=== PATIENT | female | born 1985 | race Caucasian/White ===

== ENCOUNTER 2016-11-02 21:59 | Inpatient (IN) | payer BC, MEDICAID ==
[2016-11-02] MEDS ORDERED: fentaNYL 100 MCG/2 ML INJ ONE (22:09)
[2016-11-02] MEDS ORDERED: ONDANSETRON 4 MG/2 ML VIAL ONE (22:09)
--- NOTE | 2016-11-02 22:16 | EDPHY ---
H & P HPI/ROS: Chief Complaint: Fall, back and ankle pain HPI: 31-year-old woman was rock climbing this evening when she fell and her protective gear became loose. Patient states she fell approximately 20 feet and landed on her back and buttocks. She was wearing a helmet. She had no loss of conscious. Had immediate onset of low back and pelvis pain and right ankle pain. She has a prolonged rescue by [facility]. Patient received 200 mcg of fentanyl EN route. Patient has been awake alert to the entire transfer process. Denies past medical history. No chest pain or shortness of breath. No abdominal pain. No neck pain, numbness or weakness. ROS: 10 point Review of Systems is negative except as noted in the HPI. PMH: None medications: None Allergies: None Social History: No smoking, occasional alcohol, no recreational drug use Family History: non-contributory Physical Exam: Gen: Awake, Alert, Airway Intact HEENT: Head: Atraumatic Eyes: PERRLA, EOMI Ears: No hemotympanum Nose: No epistaxis Mouth: Normal dentition, Airway patent Face: No deformity Neck: non-tender, no stepoff, Full ROM without pain Chest: non-tender, lungs CTA Heart: normal heart tones Abd: soft, moderate tenderness left lower quadrant, atraumatic Pelvis: Tender redness over primarily the left iliac crest, \tenderness to AP and lateral compression Back: No midline tenderness or step-offs. She has a large contusion in the left lateral mid thoracic and over the left iliac crest, no midline tenderness Ext: Right ankle is tender with primary tenderness in the lateral malleolus, decreased range of motion secondary to pain Skin: no rash Neuro: CN II-XII intact, Strength 5/5 in all extremities, sensation intact in all extremities Medical Decision Making - Diagnostics Imaging Results: Imaging Impressions Abdomen CT 11/02/16 22:06 Impression: 1. Normal CT abdomen and pelvis with contrast enhancement. 2. Burst type fracture involving L5 vertebral body segment as detailed above. There is also fracture through the posterior ring. 3. Fractures of the right transverse process of L1-L4. Findings were reviewed in the radiology department with Dr. Linda Aguilar Lumbar Spine CT 11/02/16 22:06 Impression: 1. Normal CT abdomen and pelvis with contrast enhancement. 2. Burst type fracture involving L5 vertebral body segment as detailed above. There is also fracture through the posterior ring. 3. Fractures of the right transverse process of L1-L4. Findings were reviewed in the radiology department with Dr. Linda Aguilar ED Course/Re-evaluation: Patient arrived as a full trauma activation with Dr. Aguilar in her room with myself. Patient is awake and alert. Normal hemodynamics. Primary survey was completed. Secondary survey revealed pelvis lumbar, thoracic and ankle injuries with some abdominal tenderness. Right ankle was immobilized by myself with a posterior splint for imaging. Patient received 50 mcg of fentanyl and 4 mg of Zofran. Patient was escorted to CT scanner by Dr. Aguilar. 2235 CT scan shows right-sided L1 through 4 transverse process fracture and an L5 body fracture. MRI has been ordered by Dr. Aguilar. Dr. Calhoun has also spoke with Dr. Roper who was on his way. - Data Points Laboratory Results: Laboratory Results 11/02/16 22:45 11/02/16 11/02/16 11/02/16 22:45 22:45 22:45 WBC RBC Hgb Hct MCV MCH MCHC RDW Plt Count MPV Neut % (Auto) Lymph % (Auto) [place] % (Auto) Eos % (Auto) Baso % (Auto) Nucleat RBC Rel Count Absolute Neuts (auto) Absolute Lymphs (auto) Absolute Monos (auto) Absolute Eos (auto) Absolute Basos (auto) Absolute Nucleated RBC Immature Gran % Immature Gran # PT INR APTT Sodium Pending Potassium Pending Chloride Pending Carbon Dioxide Pending Anion Gap Pending BUN Pending Creatinine Pending Estimated GFR Pending Glucose Pending Calcium Pending Beta HCG, Qual Pending Ethyl Alcohol Pending Patient ABO/Rh Pending Antibody Screen Pending 11/02/16 11/02/16 22:45 22:45 WBC 18.50 10^3/uL H 10^3/uL (3.80-9.50) RBC 3.63 10^6/uL L 10^6/uL (4.18-5.33) Hgb 12.0 g/dL L g/dL (12.6-16.3) Hct 35.7 % L % (38.0-47.0) MCV 98.3 fL fL (81.5-99.8) MCH 33.1 pg pg (27.9-34.1) MCHC 33.6 g/dL g/dL (32.4-36.7) RDW 12.1 % % (11.5-15.2) Plt Count 203 10^3/uL 10^3/uL (150-400) MPV 9.5 fL fL (8.7-11.7) Neut % (Auto) 84.9 % H % (39.3-74.2) Lymph % (Auto) 5.4 % L % (15.0-45.0) [place] % (Auto) 8.4 % % (4.5-13.0) Eos % (Auto) 0.1 % L % (0.6-7.6) Baso % (Auto) 0.2 % L % (0.3-1.7) Nucleat RBC Rel Count 0.0 % % (0.0-0.2) Absolute Neuts (auto) 15.70 10^3/uL H 10^3/uL (1.70-6.50) Absolute Lymphs (auto) 1.00 10^3/uL 10^3/uL (1.00-3.00) Absolute Monos (auto) 1.56 10^3/uL H 10^3/uL (0.30-0.80) Absolute Eos (auto) 0.01 10^3/uL L 10^3/uL (0.03-0.40) Absolute Basos (auto) 0.04 10^3/uL 10^3/uL (0.02-0.10) Absolute Nucleated RBC 0.00 10^3/uL 10^3/uL (0-0.01) Immature Gran % 1.0 % % (0.0-1.1) Immature Gran # 0.19 10^3/uL H 10^3/uL (0.00-0.10) PT Pending INR Pending APTT Pending Sodium Potassium Chloride Carbon Dioxide Anion Gap BUN Creatinine Estimated GFR Glucose Calcium Beta HCG, Qual Ethyl Alcohol Patient ABO/Rh Antibody Screen Medications Given: Discontinued Medications Hydromorphone HCl (Dilaudid) 1 mg IVP EDNOW ONE Stop: 11/02/16 22:39 Last Admin: 11/02/16 22:39 Dose: 1 mg Departure - Departure Disposition: [facility] In[facility] Acute Clinical Impression: Lumbar burst fracture, Ankle fracture Condition: Critical Referrals: Patient,NotPresent [Primary Care Provider] - As per Instructions
[2016-11-02] MEDS ORDERED: HYDROmorphONE/DILAUDID 1 MG/ML SYR ONE (22:36)
[2016-11-02] MEDS ORDERED: HYDROmorphONE/DILAUDID 1 MG/ML SYR IVP ONE (22:38)
[2016-11-02 22:53] LABS: ABSOLUTE IMMATURE GRANULOCYTES 0.19 10^3/uL (0.00-0.10); ADD DIFF? NO; ADD MORPH? NO; ADD SCAN? NO; ATYPICAL LYMPHOCYTE FLAG 0 (0-99); FRAGMENT RBC FLAG 0 (0-99); HEMATOCRIT 35.7 % (38.0-47.0); LEFT SHIFT FLG 60 (0-99); LIPEMIA HEMOLYSIS FLAG 80 (0-99); MEAN CELL HEMOGLOBIN 33.1 pg (27.9-34.1); MEAN CELL HEMOGLOBIN CONCENTR. 33.6 g/dL (32.4-36.7); MEAN CELL VOLUME 98.3 fL (81.5-99.8); MEAN PLATELET VOLUME 9.5 fL (8.7-11.7); PLATELET CLUMPS FLAG 0 (0-99); PLATELET COUNT 203 10^3/uL (150-400); RED BLOOD CELL COUNT 3.63 10^6/uL (4.18-5.33); RED CELL DISTRIBUTION WIDTH 12.1 % (11.5-15.2)
[2016-11-02 23:01] LABS: INR 1.18 (0.83-1.16)
[2016-11-02 23:02] LABS: APTT 25.8 SEC (23.0-38.0)
[2016-11-02] MEDS ORDERED: NALOXONE HCL 0.4 MG/ML INJ IVP PRN ×2 (23:02→23:06)
[2016-11-02 23:09] LABS: ANION GAP 10 mEq/L (8-16); CALCIUM 8.8 mg/dL (8.5-10.4); CARBON DIOXIDE 21 mEq/l (22-31); CHLORIDE 103 mEq/L (97-110); CREATININE 0.9 mg/dL (0.6-1.0); ETHANOL SERUM < 10 mg/dL (0-10); GLOMERULAR FILTRATION RATE > 60; GLUCOSE 130 mg/dL (70-100); POTASSIUM 3.4 mEq/L (3.5-5.2); SODIUM 134 mEq/L (134-144)
--- NOTE | 2016-11-02 23:34 | GHP ---
[f rep st] PREOP HISTORY AND PHYSICAL DATE OF ADMISSION: 11/02/2016 REASON FOR CONSULTATION: 1. Bilateral ankle pain. Rule out fractures. 2. Lumbar spine pain. Rule out fracture. HISTORY OF PRESENT ILLNESS: Patient is a 31-year-old woman who was rock climbing and fell approxima tely 20 feet when her gear became loose. She was extricated by [employer] [facility] and brought to the emergency room. She was awake and alert during the entire process. Denies loss of consciousne ss. REVIEW OF SYSTEMS: Negative and as indicated in the emergency room. PAST MEDICAL HISTORY: None. MEDS: None. ALLERGIES: None. SOCIAL HISTORY: Nonsmoker. No recreational drug use. Occasional alcohol use. PHYSICAL EXAMINATION: GENERAL: Patient is awake, alert, oriented, and cooperative. HEENT: Within normal limits. BACK: She complains of back pain and is being evaluated by the administrative program specialist. She moves all extremities and has normal sensation. CHEST: Evaluated by ER physician and normal. ABDOMEN: Evaluated by ER physician and normal. HEART: Evaluated by ER physician and normal. EXTR EMITIES: Examination of the right ankle reveals swelling. She has a posterior splint in place, nor mal sensation, is able move the toes. Left ankle is much less tender. She is able to move the ankl e, midfoot, and toes. She has some mild pain laterally, mild pain anteriorly in the mid foot. Skin is intact. Sensation is intact. Pulses 2+ dorsalis pedis, posterior tibialis. IMAGING: Images show a fracture through the right talar neck and an avulsion fracture posteriorly o ff the talus. The x-rays of the left talus show irregularities in the talar neck, questionable frac ture. Radiographs of the lumbar spine show a burst fracture involving the L5 vertebral body and tra nsverse process fractures from L1 through L4 on the right side. ASSESSMENT: Further imaging will be required to evaluate the ankle and specifically the talus fract ures. We will image both ankles and determine the appropriate mode of treatment after review of CT. She is placed in a posterior splint on the right side. A soft dressing will be applied on the lef t side. She will ice and elevate. /[id number]/MODL
--- NOTE | 2016-11-02 23:44 | GHP ---
[f rep st] HISTORY AND PHYSICAL DATE OF ADMISSION: 11/02/2016 CHIEF COMPLAINT: Trauma activation, fall from 20 feet. HISTORY OF PRESENT ILLNESS: The patient is a 31-year-old woman who was a helmeted climber when she fell approximately 20 feet. She had no loss of consciousness. She is not sure exactly how she landed but she complains of pelvis, back, and ankle pain. She last ate prior to dinner. She had something to drink around 6 o'clock. She is unsure of her last tetanus. ALLERGIES: She has no allergies. PAST MEDICAL HISTORY: None. PAST SURGICAL HISTORY: Surgery on her kidney when she was in 6th grade. 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 She denies tobacco use. She does use marijuana. FAMILY HISTORY: Noncontributory. REVIEW OF SYSTEMS: Significant for pain in her back, pelvis, and feet. PHYSICAL EXAMINATION: VITAL SIGNS: She is afebrile. Her vital signs have been stable. General: Pleasant, well nourished and appropriate. HEENT: Normocephalic, atraumatic. Pupils equal, round, react to light. No hemotympanum. No otorrhea. Teeth fit together normally. No midface instability. Posterior pharynx clear. Tongue is dry. NECK: Dr. Hooker cleared her C-spine on arrival to the emergency room by clinical exam. LUNGS: Clear to auscultation bilaterally. No increased work of breathing. Chest: No clavicular tenderness. No sternal tenderness. CARDIAC: Regular rate. No peripheral edema. ABDOMEN: Bowel sounds present. Soft. She is tender when pushing on her abdomen, but she feels it in her back. No pelvis instability. EXTREMITIES: 5/5 strength upper extremity. Lower extremities are difficult to assess for strength due to her pain with moving. She does have pain on the right lateral ankle and left calcaneus. SKIN: She has scattered varying bruises over her legs. BACK: She has an abrasion across her back. She has minimal pain on her back. PSYCH: Very appropriate, at points tearful. NEURO: Grossly intact. In particular, no paresthesias or saddle anesthesia. LABORATORY DATA: Pending. Her CT scan shows no solid abdominal organ injury. Her L-spine shows right transverse process fractures 1 through 4 and L5 complex fracture. MRI with epidural hematoma anteriorly. She has a R talus fracture, r distal fibula fracture and l cuboid fracture. IMPRESSION AND PLAN: The patient is a 31-year-old woman status post fall 20 feet with a significant complex L5 fracture with no neuro deficits. Dr. Roper has evaluated her in the emergency room. At this time, she will be bed rest. She may be head of bed up to 30 degrees, but not more than that with spinal precautions. Substitute Crossing Guard will be coming to fit her for a brace in the morning, will need to make it and then will likely have the brace back by Monday. Goal is non -operative management. If she develops any neurologic changes, pain is not controlled or on standing x-ray there is instability then surgical intervention will be required. She will be admitted to the ICU for q.1 hour neuro checks. We have ordered Ativan and a GOPHERMAN. She will have a Upton because she will be bed rest. Dr. Duarte has also evaluated her in the operating room, and we have ordered CT scans of her bilateral ankles. She will be nonweightbearing. She will be n.p.o. after 4 a.m. Until then, she can have sips and chips, but no solid food. Dr. Duarte will be taking her to the OR. He is awaiting the CT's to solidify his operative plan. She is unsure of her last tetanus shot, so we will give her a booster. We have counseled the patient that she will likely not be working for a couple of months. She will likely need rehab. I spent more than 90 minutes in the ER with direct patient care and coordinating her care /[id number]/MODL MTDD
[2016-11-03] MEDS ORDERED: HYDROmorphONE/DILAUDID 1 MG/ML SYR ONE (00:01)
--- NOTE | 2016-11-03 00:05 | GCON ---
[f rep st] CONSULTATION EMERGENCY ROOM CONSULTATION DATE OF CONSULTATION: 11/02/2016 REASON FOR CONSULTATION: L5 burst fracture, status post fall. HISTORY OF PRESENT ILLNESS: This is a 31-year-old, otherwise, fairly healthy woman, who states she was rock climbing this evening when she fell when her protective gear became loose. She fell approx imately 20 feet and landed, according to witnesses and herself, on 1 rock and then landed directly o nto her buttocks. She did not have any loss of consciousness and was wearing a helmet at that time. She had acute onset of low back pain and bilateral ankle pain but no loss of bowel or bladder func tion and no radiculopathy. She had a prolonged rescue by [email or web address] [facility] and was brought to [facility] for further evaluation and management. Imaging studies demonstrated L5 bu rst fracture, for which a neurosurgical consultation was requested. The patient currently is complaining of low back pain located at the lumbosacral junction. She also has pain in her bilateral ankles. No numbness or tingling radiating down her legs and no saddle an esthesia. She has no tingling, numbness, or pain of the upper extremities. No neck pain. She luis es any headaches. REVIEW OF SYSTEMS: Complete 10-point review of systems from the patient's intake form reviewed by chaz garcia and negative for those except as noted in the HPI. PAST MEDICAL HISTORY: None. MEDICATIONS: Prior to admission none. ALLERGIES: No known drug allergies. SOCIAL HISTORY: Patient does not utilize alcohol but no other recreational or illicit drug use and no tobacco use. FAMILY HISTORY: Negative for any cancer. PHYSICAL EXAMINATION: VITAL SIGNS: Blood pressure 127/67. Heart rate is 76. She is saturating 98 %, currently on 2 L nasal cannula. Respiratory rate is 16. Patient is afebrile. GENERAL: The pat ient is sitting in the bed, is no acute distress. She, in fact, is in fairly good spirits given her current circumstances. Affect appears to be appropriate. HEENT: Head is atraumatic, normocephali c. Eyes: Pupils are equal, round, reactive to light bilaterally. Extraocular movements are intact . Oropharynx is moist. NECK: Nontender with no evidence of any step-offs with full range of motio n without pain. CARDIOVASCULAR: Deferred. PULMONARY: Deferred. MOTOR EXAM: She has 5/5 strengt h with bilateral machine setup operator strength, biceps, triceps, bilateral deltoid, bilateral hip flexion, left knee flexion/extension, and left plantar dorsiflexion and left extensor hallucis longus. Right lower ex tremity below the knee could not be examined secondary to being casted and splinted. SENSORY: The patient has intact sensation throughout all major dermatomes of the bilateral upper extremities, as well as left lower extremity and right lower extremity to the level of the knee to light touch. She has no appreciable reflexes at the moment of the bilateral patella or brachioradialis. OTHER: She has negative Dre's and no Babinski on the left. Per trauma notes, patient does have rectal tone and no saddle anesthesia. NEUROLOGIC: Cranial nerv es 2-12 are intact. Face is symmetric. Tongue protrudes midline. Uvula and palate elevate symmetr ically. She has intact sensation to light touch on her face bilaterally. She has intact hearing to light finger scratch bilaterally and shoulder shrug is symmetric. Her pupils are equally round and reactive to light bilaterally, and extraocular movements are intact. MEDICAL DECISION MAKING: Patient underwent a CT of the abdomen and pelvis with CT of the lumbar spi ne, which was reviewed by me on the [facility] PAC system. There is a burst-type fr acture associated with the L5 vertebral body segment. Compression is most prominent along the left superior endplate. There is a fracture line involving the posterior ring to the right side of the s pinous process. There are also a right-sided transverse process fractures of L1 through L4. No adi dence of any other fractures in the lower thoracic spine. ASSESSMENT AND PLAN: The patient is an otherwise healthy 31-year-old woman, who fell approximately 20 feet earlier this evening and had a long extrication. She has been neurologically intact since t he event and has been conscious throughout. She has evidence of bilateral ankle fractures and an L5 burst fracture. The patient does state that she had, in fact, sat up at the injury site and had so me assistance ambulating with her friends. She is neurologically intact, and given the burst-type f racture and the fact that she has already tested this with being upright, I gave her the 2 treatment options describing treatments for this, which would involve either posterior segment stabilization with a fusion versus bracing option, which is nonsurgical. Given the fact that she is neurologicall y intact and has already tested this, I think initial treatment with a brace would be a reasonable o ption. She agrees with this initial treatment plan. We will obtain an MRI scan of the lumbar spine to further evaluate her fracture pattern and to evaluate the ligamentous structures and ensure that there are no concerning hematomas. We will have Rack Worker come fit the patient with an LSO brace with a hip spica. There is no indication or treatment for the transverse process fractures. I did expl ain to the patient that should she develop any neurological deficits, worsening kyphosis, or intract able pain, that she will ultimately require surgical fixation for this lesion. She did express an u nderstanding. For this reason, we will place her in the intensive care unit this evening with q.1 h our neuro checks. She should have spinal precautions but is able to be up to 30 degrees without a b race. However, once she is greater than 30 degrees or up and mobile, she needs to be in the brace. I recommended pain control with muscle relaxants and have discussed this with the primary service, Dr. Aguilar, who is the admitting trauma surgeon, as well as Dr. Duarte of Orthopedics and the emergenc y room physicians, as well as the patient, who are all in agreement with this treatment plan. Neurosurgery will follow along with this patient. /[id number]/MODL
[2016-11-03] MEDS ORDERED: TDAP ADULT 0.5 ML INJ (BOOSTRIX) IM ONE (00:16)
[2016-11-03 00:46] LABS: COLOR YELLOW; LEUKOCYTE ESTERASE,URINE NEGATIVE (NEGATIVE); NITRITE,URINE NEGATIVE (NEGATIVE)
[2016-11-03 00:49] LABS: BACTERIA TRACE /hpf (NONE SEEN)
[2016-11-03] MEDS ORDERED: fentaNYL 100 MCG/2 ML INJ IVP ONE (00:52)
[2016-11-03] MEDS ORDERED: ONDANSETRON 4 MG/2 ML VIAL IVP ONE (00:52)
[2016-11-03] MEDS: morphINE PCA 30 MG/30 ML PCA IV PRN ×3 (00:52→20:36)
[2016-11-03] MEDS: D5W 1/2 NS W/ 20 KCl/L 1,000 ML IV SCH (00:55)
[2016-11-03] MEDS ORDERED: HYDROmorphONE/DILAUDID 1 MG/ML SYR IVP ONE ×2 (00:55→00:57)
[2016-11-03] MEDS ORDERED: NS 500 ML IV ONE (00:59)
[2016-11-03] MEDS: ONDANSETRON 4 MG/2 ML VIAL IVP PRN (01:33)
[2016-11-03] MEDS: PROMETHAZINE HCL 25 MG/ML INJ IV PRN (02:12)
[2016-11-03 04:17] LABS: % IMMATURE GRANULYOCYTES 0.6 % (0.0-1.1); ABSOLUTE IMMATURE GRANULOCYTES 0.07 10^3/uL (0.00-0.10); ADD DIFF? NO; ADD MORPH? NO; ADD SCAN? NO; ATYPICAL LYMPHOCYTE FLAG 10 (0-99); FRAGMENT RBC FLAG 0 (0-99); HEMATOCRIT 34.7 % (38.0-47.0); HEMOGLOBIN 11.8 g/dL (12.6-16.3); LEFT SHIFT FLG 30 (0-99); LIPEMIA HEMOLYSIS FLAG 90 (0-99); MEAN CELL HEMOGLOBIN 33.6 pg (27.9-34.1); MEAN CELL VOLUME 98.9 fL (81.5-99.8); MEAN PLATELET VOLUME 9.7 fL (8.7-11.7); PLATELET CLUMPS FLAG 0 (0-99); PLATELET COUNT 181 10^3/uL (150-400); RED BLOOD CELL COUNT 3.51 10^6/uL (4.18-5.33); RED CELL DISTRIBUTION WIDTH 12.4 % (11.5-15.2)
[2016-11-03 04:38] LABS: ANION GAP 9 mEq/L (8-16); CALCIUM 8.9 mg/dL (8.5-10.4); CARBON DIOXIDE 22 mEq/l (22-31); CHLORIDE 105 mEq/L (97-110); CREATININE 0.8 mg/dL (0.6-1.0); GLOMERULAR FILTRATION RATE > 60; GLUCOSE 101 mg/dL (70-100); POTASSIUM 4.4 mEq/L (3.5-5.2); SODIUM 136 mEq/L (134-144)
--- NOTE | 2016-11-03 07:34 | SOAPPROG ---
SOAP Progress Note Assessment/Plan: Assessment: Plan: Subjective: S: Pt. s/p fall from 20 feet with bilat ankle and foot pain, talus fx on right, cuboid fx on left. Pn. well controlled. No N/T, no new joint pain, no fevers, BRAXTON, dizziness, CP, SOB, abd. pn, n/v. O: Pt. alert calm, comfortable, resting, answering questions appropriately. No calf swelling, TTP, redness or warmth, Splint in place on right. John loosened and re-wrapped as it was quite uncomfortable, better after re-wrap. DNVI bilaterally. No other new joint pain or tenderness to palpate. A: Pt. awaiting results of CT to determine when appropriate time will be to repair right talus and to review results of left foot fx as well. Dr. Duarte will review results this AM. P: Continue pain meds. as ordered Continue Left SCD Continue NPO Continue NWB bilat LE. Objective: Vital Signs Temp Pulse Resp BP Pulse Ox 37.0 C 60 18 101/56 L 100 11/03/16 00:30 11/03/16 06:00 11/03/16 06:00 11/03/16 06:00 11/03/16 06:00 Laboratory Results 11/03/16 04:00 11/03/16 04:00 11/02/16 11/03/16 11/04/16 05:59 05:59 05:59 Intake Total 1230 Output Total 1250 Balance -20 PT 15.0 SEC (12.0-15.0) 11/02/16 22:45 INR 1.18 (0.83-1.16) H 11/02/16 22:45 ICD10 Worksheet Patient Problems: Problems Problem Status Onset Ankle fracture Acute Lumbar burst fracture Acute
--- NOTE | 2016-11-03 07:44 | SOAPPROG ---
SOAP Progress Note Assessment/Plan: Assessment: 31 FEMALE WITH SPINAL FX AND TALUS FX + OTHER INJURIES/ VS STABLE/ AFEBRILE/ HCT 31 NPO FOR SURGERY TODAY ALERT, COMFORTABLE Plan:SPINE MRI/ SURGERY ON TALUS 11/03/16 07:43 11/03/16 16:21 Objective: Vital Signs Temp Pulse Resp BP Pulse Ox 37.0 C 60 18 101/56 L 100 11/03/16 00:30 11/03/16 06:00 11/03/16 06:00 11/03/16 06:00 11/03/16 06:00 Laboratory Results 11/03/16 04:00 11/03/16 04:00 11/02/16 11/03/16 11/04/16 05:59 05:59 05:59 Intake Total 1230 Output Total 1250 Balance -20 PT 15.0 SEC (12.0-15.0) 11/02/16 22:45 INR 1.18 (0.83-1.16) H 11/02/16 22:45 ICD10 Worksheet Patient Problems: Problems Problem Status Onset Ankle fracture Acute Lumbar burst fracture Acute
--- NOTE | 2016-11-03 09:02 | NEUSURGPN ---
Assessment/Plan: Assessment: 31yo female 30ft fall with L5 burst fx and L1-4 TP fractures Plan: -Follow up MRI lumbar spine today -Gas Cutter to fit with LSO brace-Gas Cutter to arrive on Monday -Will need upright lumbar spine x-rays IN brace when it arrives, pending ok to bear weight per Ortho -May need spine surgery if pain can't be controlled or with any neuro changes -Call NS with any changes in status Subjective: Patient complains of low back pain, denies any saddle anesthesia or lower extremity neurological symptoms Objective: -AOx4 -full strength in left lower extremity -Unable to assess strength in right lower extremity r/t ankle fracture -Sensation intact throughout BLE Neuro Check Frequency: per routine Urinary Catheter in Place: Yes Urinary Catheter Indication: Other (Use Comment) (trauma) Catheter Insertion Date: 11/02/16 - Physician Discussed Patient with : Jacqu[facility] Neurosurgery Physical Exam - Vitals, I&O, Labs I and O 11/02/16 11/03/16 11/04/16 05:59 05:59 05:59 Intake Total 1230 Output Total 1250 Balance -20 Weight 68.039 kg Intake: Oral (ml) 300 IV Infused (ml) 930 D5W 1/2 NS W/ 20 KCl/L 1, 241 000 ml @ 75 mls/hr IV CONT KAPIL Rx#:[id number] morphINE 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
[2016-11-03] MEDS ORDERED: LACTULOSE 20 GM/30 ML UDCUP PO PRN (09:50)
[2016-11-03] MEDS ORDERED: BISACODYL 10 MG SUPP PR PRN (09:50)
[2016-11-03] MEDS ORDERED: BUPIVACAINE 0.5% 30 ML SDV ONE (11:22)
[2016-11-03] MEDS ORDERED: ceFAZolin 2 GM/DEXTROSE 100 ML IV ONE (11:47)
--- NOTE | 2016-11-03 12:42 | PDANEPAE ---
ANE History of Present Illness 31 yo for orif ankle s/p fall l5 burst fx ANE Past Medical History - Cardiovascular History Hx Hypertension: No Hx Arrhythmias: No Hx Chest Pain: No Hx Coronary Artery / Peripheral Vascular Disease: No Hx CHF / Valvular Disease: No Hx Palpitations: No - Pulmonary History Hx COPD: No Hx Asthma/Reactive Airway Disease: No Hx Recent Upper Respiratory Infection: No Hx Oxygen in Use at Home: No - Endocrine History Hx Diabetes: No - Chronic Pain History Chronic Pain: No ANE Review of Systems - Exercise capacity METS (RN): 4 METS ANE Patient History - Allergies Allergies/Adverse Reactions: No Known Allergies Allergy (Unverified 11/02/16 23:02) - Home Medications Home Medications: NK [No Known Home Meds] 11/03/16 [Last Taken Unknown] - NPO status NPO Since - Liquids (Date): 11/02/16 NPO Since - Liquids (Time): 23:59 NPO Since - Solids (Date): 11/02/16 NPO Since - Solids (Time): 23:59 - Anes Hx Anes Hx: post operative nausea - Smoking Hx Smoking Status: Current some day smoker ANE Labs/Vital Signs - Labs Result Diagrams: 11/03/16 04:00 11/03/16 04:00 - Vital Signs Blood Pressure: 103/58 Heart Rate: 72 Respiratory Rate: 15 O2 Sat (%): 97 Height: 5 ft 5 in Weight: 68.039 kg ANE Physical Exam - Airway Neck exam: FROM Mallampati Score: Class 2 Mouth exam: normal dental/mouth exam - Pulmonary Pulmonary: no respiratory distress - Cardiovascular Cardiovascular: regular rate and rhythym - ASA Status ASA Status: II ANE Anesthesia Plan Anesthesia Plan: GA w LMA
[2016-11-03] MEDS ORDERED: PROPOFOL/EMULSION 500 MG/50 ML BOTTLE IV ONE (12:53)
[2016-11-03] MEDS ORDERED: fentaNYL 100 MCG/2 ML INJ ONE ×2 (12:53)
[2016-11-03] MEDS ORDERED: DEXAMETHASONE 4 MG/ML VIAL ONE (13:15)
[2016-11-03] MEDS ORDERED: BACITRACIN 50,000 UNITS/10 ML SYR IRR ONE ×2 (13:28→14:41)
[2016-11-03] MEDS ORDERED: HYDROmorphONE/DILAUDID 2 MG/ML INJ ONE (14:46)
[2016-11-03] MEDS ORDERED: HYDROmorphONE/DILAUDID 1 MG/ML SYR IVP PRN (14:56)
[2016-11-03] MEDS ORDERED: ONDANSETRON 4 MG/2 ML VIAL IVP PRN (14:56)
[2016-11-03] MEDS ORDERED: fentaNYL 100 MCG/2 ML INJ IVP PRN (14:56)
[2016-11-03] MEDS ORDERED: NALOXONE HCL 0.4 MG/ML INJ IVP PRN (14:56)
[2016-11-03] MEDS ORDERED: PROPOFOL 200 MG/20 ML VIAL ONE (15:10)
--- NOTE | 2016-11-03 15:35 | POSTOPPROG ---
Post Op Note Date of Operation: 11/03/16 Surgeon: El Duarte Flatbed Stitcher: Frantz Anesthesia: GET(General Endotracheal) Pre-op Diagnosis: right talus fracture Post-op Diagnosis: right talus fracture Procedure: open reduction internal fixation of the right talus Findings: As above, please see full dictation for details. Inf/Abcess present in the surg proc area at time of surgery?: No Depth: Deep Incisional (Fascial) EBL: Minimal Complications: None
--- NOTE | 2016-11-03 15:42 | POSTANESTH ---
Post Anesthetic Evaluation Cardiovascular Status: Normal, Stable Respiratory Status: Similar to Pre-op Cond. Level of Consciousness/Mental Status: Can Participate in Eval Pain Control: Adequate, Prn Tx Ordered Nausea/Vomiting Control: Adequate, Prn Tx Ordered Complications Possibly Related to Anesthesia: None Noted
--- NOTE | 2016-11-03 16:21 | SOAPPROG ---
SOAP Progress Note Assessment/Plan: Assessment/Plan: Right talus fracture, left cuboid fracture, L5 burst fracture s/p ORIF of right talus, performed by Dr. Duarte on 11/03/2016, POD#0 -Pt will be NWB on BLE -Pt placed in postoperative plaster splint on RLE, cam walker boot on LLE w/ compressive MARIA ISABEL for VTE mechanical prophylaxis -ASA for VTE chemoprophylaxis per Dr. Mckee -Pt may ice and elevate BLE for swelling and pain control, no more than 30 deg of elevation per NS -Cont current pain control, encourage PO as tolerated -OOB activity per NS 11/03/16 16:20 Objective: Vital Signs Temp Pulse Resp BP Pulse Ox 36.9 C 72 15 103/58 L 97 11/03/16 12:11 11/03/16 12:41 11/03/16 12:41 11/03/16 12:41 11/03/16 12:41 Laboratory Results 11/03/16 04:00 11/03/16 04:00 11/02/16 11/03/16 11/04/16 05:59 05:59 05:59 Intake Total 1230 Output Total 1250 Balance -20 PT 15.0 SEC (12.0-15.0) 11/02/16 22:45 INR 1.18 (0.83-1.16) H 11/02/16 22:45 Pt transported to PACU in stable condition ICD10 Worksheet Patient Problems: Problems Problem Status Onset Ankle fracture Acute Lumbar burst fracture Acute
[2016-11-03] MEDS: SENNOSIDES/DOCUSATE SODIUM TAB PO SCH (19:59)
[2016-11-03] MEDS: ceFAZolin 2 GM/DEXTROSE 100 ML IV SCH (19:59)
--- NOTE | 2016-11-03 23:33 | SOAPPROG ---
SOAP Progress Note Assessment/Plan: Assessment: 31 FEMALE WITH SPINAL FX AND TALUS FX + OTHER INJURIES/ VS STABLE/ AFEBRILE/ HCT 31 NPO FOR SURGERY TODAY ALERT, COMFORTABLE Plan:SPINE MRI/ SURGERY ON TALUS 11/03/16 07:43 11/03/16 16:21 11/03/16 23:32 CO POSTOP PAIN AND DRESSING TOO TIGHT BUT GOOD CAP FILLING AND GOOD MOTOR AND SENSORY EXAM/ NOTIFY DR LANGLEY Objective: Vital Signs Temp Pulse Resp BP Pulse Ox 36.8 C 63 14 109/60 100 11/03/16 19:59 11/03/16 22:00 11/03/16 22:00 11/03/16 22:00 11/03/16 22:00 Laboratory Results 11/03/16 04:00 11/03/16 04:00 11/02/16 11/03/16 11/04/16 05:59 05:59 05:59 Intake Total 1230 2426 Output Total 1250 100 Balance -20 2326 PT 15.0 SEC (12.0-15.0) 11/02/16 22:45 INR 1.18 (0.83-1.16) H 11/02/16 22:45 ICD10 Worksheet Patient Problems: Problems Problem Status Onset Ankle fracture Acute Lumbar burst fracture Acute
[2016-11-04] MEDS: morphINE PCA 30 MG/30 ML PCA IV PRN ×2 (03:40→10:24)
--- NOTE | 2016-11-04 03:44 | GOP ---
[f rep st] OPERATIVE REPORT DATE OF OPERATION: 11/03/2016 SURGEON: El Duarte MD DIRECTOR OF REGULATORY AFFAIRS: Josué Landry PA-C. ANESTHESIA: General. PREOPERATIVE DIAGNOSIS: 1. Comminuted fracture right talus. 2. Avulsion fracture, distal fibula. POSTOPERATIVE DIAGNOSIS: 1. Comminuted fracture right talus. 2. Avulsion fracture, distal fibula. PROCEDURE PERFORMED: 1. Open reduction, internal fixation, right talus fracture. 2. Bone grafting talar bone defect. 3. Non operative treatment posterior avulsion fibular fracture. FINDINGS: DESCRIPTION OF PROCEDURE: The patient was taken the operating room, administered general anesthesia . She was carefully transferred to the OR table because of a known burst fracture at L5. The patie nt's right lower extremity was prepped and draped in normal sterile fashion. An anterior medial inc ision was made through dermal subcutaneous tissues. Sharp and blunt dissection performed down to th e medial border of the talus. We reflected the periosteal tissue. There were multiple bone fragmen ts dorsally. Several of these fragments were intra-articular and had to be removed. Fracture was t hen approached from an anterior lateral approach just lateral to the peroneus tertius. It was ezekiel ed through dermal subcutaneous tissues. The dorsal sensory branch of the peroneal nerve was preserv ed. The fractured bone fragments were multiple on the lateral side. A portion of these were excise d. A couple were left attached to the periosteal tissue. The fracture was then distracted and ever geri. We subsequently dorsiflexed it to oppose the medial margin of the fracture. The lateral kirsten n could not be anatomically opposed because of the significant comminution. Two K-wires were then u sed from the talar head, across the talar dome to secure the fracture. The bone fragments that were removed were morselized. These were mixed with cortical cancellous bone graft donor chips. They w ere then mixed with a [employer] bone putty (DBM). This was then packed into our defect that was most ly dorsal and lateral. The fracture was compressed. It was then fixated with 2 lag screws. These were 4-0 screws, brought over guidewires placed medially. The screw heads were countersunk. Intrao perative pictures were taken. One of the screws was felt to be slightly long and was backed out a c ouple turns. The fracture was put through range of motion. No impingement was noted and no distinc t clicking or catching was noted. We visualized the posterior lateral bone fragment on the fibula. We elected not to open this as it seemed to come down into appropriate alignment. Irrigation perfo rmed with normal saline. Closure was performed of the fascial tissue overlying the extensor digitor um brevis with 2-0 Vicryl. Closure was performed with subcutaneous tissue with 2-0 Vicryl. Closure was performed of the dermis with 3-0 Ethilon. A sterile compression dressing was applied. The pat ient was placed into a posterior splint and transferred back to recovery in stable condition. There were no operative complications. COMPLICATIONS: None. /[id number]/MODL
[2016-11-04] MEDS: ceFAZolin 2 GM/DEXTROSE 100 ML IV SCH (05:12)
[2016-11-04] MEDS ORDERED: ASPIRIN EC 325 MG TAB PO SCH (09:00)
--- NOTE | 2016-11-04 09:54 | SOAPPROG ---
SOAP Progress Note Assessment/Plan: Assessment/Plan: s/p ORIF R talus fracture POD#1; L cuboid fracture , L5 burst fracture - Continue pain management - Continue VTE chemoprophylaxis per medicine team - NWB BLE - OOB activity per NS 11/04/16 09:49 Subjective: Pt states her pain is improved today. Pt denies fever, chills, chest pain, SOB , abdominal pain, N/V/D, numbness, tingling and calf pain. Objective: Vital Signs Temp Pulse Resp BP Pulse Ox 36.8 C 66 18 110/60 100 11/04/16 08:00 11/04/16 08:00 11/04/16 08:00 11/04/16 08:00 11/04/16 08:00 Laboratory Results 11/03/16 04:00 11/03/16 04:00 11/03/16 11/04/16 11/05/16 05:59 05:59 05:59 Intake Total 1230 3231 Output Total 1250 1600 Balance -20 1631 PT 15.0 SEC (12.0-15.0) 11/02/16 22:45 INR 1.18 (0.83-1.16) H 11/02/16 22:45 Physical Exam - Physical Exam General Appearance: alert, no apparent distress Skin: normal color, warm/dry Extremities: normal capillary refill, pedal edema, other (Splint intact RLE, CAM boot intact LLE), No calf tenderness, No swelling, No Sophia's sign Neuro/Psych: no motor/sensory deficits, alert, normal mood/affect, oriented x 3 ICD10 Worksheet Patient Problems: Problems Problem Status Onset Ankle fracture Acute Lumbar burst fracture Acute
[2016-11-04] MEDS: SENNOSIDES/DOCUSATE SODIUM TAB PO SCH ×2 (10:25→20:45)
--- NOTE | 2016-11-04 10:39 | SOAPPROG ---
SOAP Progress Note Assessment/Plan: Assessment: Plan: Subjective: hd 3 fall climbing r talar fx, l cuboid fx, l5 burst fx lungs clear, abd soft, daling with pain well. needs ot/pt/ social work conslt- may not be able to live independantly due to lack of wt bearign on either foot. will have ortho clarify if can wt bear on left. will get brace today, check lumbar films in brace. starting heparin today , no lovenox for 5 days. Objective: Vital Signs Temp Pulse Resp BP Pulse Ox 36.8 C 68 16 105/54 L 100 11/04/16 08:00 11/04/16 10:00 11/04/16 10:00 11/04/16 10:00 11/04/16 10:00 Laboratory Results 11/03/16 04:00 11/03/16 04:00 11/03/16 11/04/16 11/05/16 05:59 05:59 05:59 Intake Total 1230 3231 Output Total 1250 1600 Balance -20 1631 PT 15.0 SEC (12.0-15.0) 11/02/16 22:45 INR 1.18 (0.83-1.16) H 11/02/16 22:45 ICD10 Worksheet Patient Problems: Problems Problem Status Onset Ankle fracture Acute Lumbar burst fracture Acute
[2016-11-04] MEDS: LORazepam 2 MG/ML INJ IVP PRN ×2 (12:33→16:56)
[2016-11-04] MEDS: HEPARIN 5,000 UNIT/0.5 ML SYR SC SCH ×2 (14:06→22:28)
--- NOTE | 2016-11-04 14:53 | NEUSURGPN ---
Assessment/Plan: Assessment: 31yo female 30ft fall with L5 burst fx and L1-4 TP fractures Plan: -[employer] Supervisor to fit with LSO brace with hip spica today -Will need upright lumbar spine x-rays IN brace when it arrives, pending ok to bear weight per Ortho, if unable to bear weight it is ok to get sitting xrays -Ok to start Heparin SQ for DVT prophylaxis -Follow up MRI yesterday shows slight decrease in size of lumbar epidural hematoma -May need spine surgery if pain can't be controlled or with any neuro changes -Call NS with any changes in status Subjective: Patient has low back pain Objective: -AOx4 -full strength in bilateral lower extremities r/t fractures, casting -BUE 5/5 -Sensation intact in bilateral toes Neuro Check Frequency: per routine Urinary Catheter in Place: Yes Urinary Catheter Indication: Other (Use Comment) (trauma) Catheter Insertion Date: 11/02/16 - Physician Discussed Patient with : [facility] Physical Exam - Vitals, I&O, Labs I and O 11/03/16 11/04/16 11/05/16 05:59 05:59 05:59 Intake Total 1230 3231 Output Total 1250 1600 Balance -20 1631 Weight 68.039 kg 68.039 kg Intake: Oral (ml) 300 300 IV Intake (ml) 1907 IV Infused (ml) 930 1024 D5W 1/2 NS W/ 20 KCl/L 1, 241 1024 000 ml @ 75 mls/hr IV CONT KAPIL Rx#:[id number] morphINE [employer] See Protocol 14 IV PRN PRN Rx#: [id number] Output: Urine (ml) 1250 1550 Catheter 750 1550 Estimated Blood Loss (ml) 50 Vital Signs Temp Pulse Resp BP Pulse Ox 36.9 C 81 18 102/55 L 100 11/04/16 12:00 11/04/16 14:00 11/04/16 14:00 11/04/16 14:00 11/04/16 14:00 Laboratory Results 11/03/16 04:00 11/03/16 04:00 ICD10 Worksheet Patient Problems: Problems Problem Status Onset Ankle fracture Acute Lumbar burst fracture Acute
[2016-11-04] MEDS: ONDANSETRON 4 MG/2 ML VIAL IVP PRN (15:17)
[2016-11-04] MEDS: PROMETHAZINE HCL 25 MG/ML INJ IV PRN (16:56)
[2016-11-04] MEDS: D5W 1/2 NS W/ 20 KCl/L 1,000 ML IV SCH (20:45)
[2016-11-05] MEDS: ONDANSETRON 4 MG/2 ML VIAL IVP PRN ×4 (00:50→20:06)
[2016-11-05] MEDS: HYDROCODONE/APAP 5/325 TAB PO PRN ×2 (04:34→16:14)
[2016-11-05] MEDS: HEPARIN 5,000 UNIT/0.5 ML SYR SC SCH ×3 (05:54→22:50)
--- NOTE | 2016-11-05 07:45 | NEUSURGPN ---
Assessment/Plan: Assessment/Plan: Assessment: 31yo female 30ft fall with L5 burst fx and L1-4 TP fractures still with severe back pain with movement. 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 -upright lumbar spine x-rays IN brace complete and call stable alignment. -Ok to start Heparin SQ for DVT prophylaxis -Follow up MRI showed slight decrease in size of lumbar epidural hematoma, no c/ o leg symptoms -May need spine surgery if pain can't be controlled or with any neuro changes -Call NS with any changes in status Subjective: Patient has severe low back pain, not in brace enough at this point to see if helps. Objective: -AAOx3 -Strength assessment in BLE difficult d/t injury, but appears intact. some increased back pain with movement R leg. -BUE 5/5 -Sensation intact in bilateral toes Urinary Catheter in Place: No Catheter Insertion Date: 11/02/16 - Physician Discussed Patient with : [facility] Physical Exam - Vitals, I&O, Labs I and O 11/04/16 11/05/16 11/06/16 05:59 05:59 05:59 Intake Total 3231 1600 Output Total 1600 2400 Balance 1631 -800 Weight 68.039 kg Intake: Oral (ml) 300 700 IV Intake (ml) 1907 IV Infused (ml) 1024 900 D5W 1/2 NS W/ 20 KCl/L 1, 1024 900 000 ml @ 75 mls/hr IV CONT KAPIL Rx#:[id number] Output: Urine (ml) 1550 2400 Catheter 1550 2400 Estimated Blood Loss (ml) 50 Other: Intake Quantity Yes Sufficient Vital Signs Temp Pulse Resp BP Pulse Ox 36.9 C 74 17 117/90 H 98 11/05/16 05:52 11/05/16 05:52 11/05/16 05:52 11/05/16 05:52 11/05/16 05:52 Laboratory Results 11/03/16 04:00 11/03/16 04:00 ICD10 Worksheet Patient Problems: Problems Problem Status Onset Ankle fracture Acute Lumbar burst fracture Acute
[2016-11-05] MEDS: SENNOSIDES/DOCUSATE SODIUM TAB PO SCH ×2 (09:26→20:06)
[2016-11-05] MEDS: PROMETHAZINE HCL 25 MG/ML INJ IV PRN (11:18)
--- NOTE | 2016-11-05 11:35 | TRAUMAPN ---
Assessment/Plan: hd 4 fall climbing r talar fx, l cuboid fx, l5 burst fx fitted last evening for TLSO significant nausea with movement pain controlled when not moving AVSS up in chair, nauseated/vomiting actively abd soft, TLSO in place left foot boot in place, right foot dressing with old dried blood toes sensate bilaterally. awaiting rehab eval - will be difficult to go home independently with boyfriend (NWB right foot, WBAT left foot). cont bueno today - poss dc in am. on SQ heparin for DVT prophyl. Objective: Vital Signs Temp Pulse Resp BP Pulse Ox 36.7 C 82 16 125/84 H 89 L 11/05/16 11:00 11/05/16 11:00 11/05/16 11:00 11/05/16 11:00 11/05/16 11:00 Laboratory Results 11/03/16 04:00 11/03/16 04:00 11/04/16 11/05/16 11/06/16 05:59 05:59 05:59 Intake Total 3231 1600 Output Total 1600 2400 550 Balance 1631 -800 -550 PT 15.0 SEC (12.0-15.0) 11/02/16 22:45 INR 1.18 (0.83-1.16) H 11/02/16 22:45
[2016-11-05] MEDS: HYDROmorphONE/DILAUDID 2 MG/ML INJ IVP PRN ×2 (14:47→15:16)
--- NOTE | 2016-11-05 17:08 | SOAPPROG ---
SOAP Progress Note Assessment/Plan: Assessment: ORIF right talus, stable in splint Closed Rx lt Cuboid Plan: mobilize with TLSO. Can be Wt Bearing to tolerance on Left with boot on. 11/05/16 17:03 Subjective: Spasms in Lower back when legs are moved. Significant pain when this occurs. Objective: Vital Signs Temp Pulse Resp BP Pulse Ox 37.1 C 79 10 L 103/61 98 11/05/16 15:46 11/05/16 15:46 11/05/16 15:46 11/05/16 15:46 11/05/16 15:46 Laboratory Results 11/03/16 04:00 11/03/16 04:00 11/04/16 11/05/16 11/06/16 05:59 05:59 05:59 Intake Total 3231 1600 Output Total 1600 2400 900 Balance 1631 -800 -900 PT 15.0 SEC (12.0-15.0) 11/02/16 22:45 INR 1.18 (0.83-1.16) H 11/02/16 22:45 Boots exchanged from medium to small on left foot CSMT intact bilaterally, moves toes well., pulsed 1+ DP, PT Webril split on right splint. for comfort ICD10 Worksheet Patient Problems: Problems Problem Status Onset Ankle fracture Acute Lumbar burst fracture Acute
[2016-11-05] MEDS: NS 1,000 ML IV SCH (20:06)
[2016-11-05] MEDS ORDERED: diphenhydrAMINE 25 MG CAP PO PRN (22:55)
[2016-11-05] MEDS ORDERED: diphenhydrAMINE 25 MG CAP PO ONE (22:59)
[2016-11-05] MEDS: morphINE PCA 30 MG/30 ML PCA IV PRN (23:48)
[2016-11-06] MEDS: ONDANSETRON 4 MG/2 ML VIAL IVP PRN ×3 (01:45→11:14)
[2016-11-06] MEDS: PROMETHAZINE HCL 25 MG/ML INJ IV PRN (03:08)
[2016-11-06] MEDS: HYDROCODONE/APAP 5/325 TAB PO PRN ×2 (04:44→18:50)
[2016-11-06] MEDS: HEPARIN 5,000 UNIT/0.5 ML SYR SC SCH ×3 (05:44→21:41)
--- NOTE | 2016-11-06 06:39 | NEUSURGPN ---
Assessment/Plan: Assessment: 31yo female 30ft fall with L5 burst fx and L1-4 TP fractures Back pain is improved, but still significant with movement on one particular place on her right Low back. No leg symptoms Plan: -Dentofacial Orthopedics Dentist to fit with LSO brace with hip spica, helps with pain . -upright lumbar spine x-rays IN brace complete and call stable alignment. -Ok to start Heparin SQ for DVT prophylaxis -May need spine surgery if pain can't be controlled or with any neuro changes -Call NS with any changes in status dw Dr. Roper Subjective: Pain is better today, but still quite severe. Transfer was difficult yesterday. some increased back pain with movement R leg. no radiating pain Objective: -AAOx3 -MAEx4 -BUE 5/5 -BLE antigravity, full assessment defered d/t injuries. -Sensation intact in bilateral legs and toes Catheter Insertion Date: 11/02/16 - Physician Discussed Patient with Dr.: Roper Neurosurgery Physical Exam - Vitals, I&O, Labs I and O 11/05/16 11/06/16 11/07/16 05:59 05:59 05:59 Intake Total 1600 700 Output Total 2400 3200 Balance -800 -2500 Intake: Oral (ml) 700 700 IV Infused (ml) 900 D5W 1/2 NS W/ 20 KCl/L 1, 900 000 ml @ 75 mls/hr IV CONT KAPIL Rx#:[id number] Output: Urine (ml) 2400 2950 Catheter 2400 2950 Emesis (ml) 250 Other: Intake Quantity Yes Yes Sufficient Vital Signs Temp Pulse Resp BP Pulse Ox 36.6 C 65 12 110/66 97 11/06/16 06:00 11/06/16 06:00 11/06/16 06:00 11/06/16 06:00 11/06/16 06:00 Laboratory Results 11/03/16 04:00 11/03/16 04:00 ICD10 Worksheet Patient Problems: Problems Problem Status Onset Ankle fracture Acute Lumbar burst fracture Acute
--- NOTE | 2016-11-06 08:52 | TRAUMAPN ---
Assessment/Plan: 31-year-old female status post fall while climbing with L5 fracture and associated anterior epidural hematoma, T1 through 4 right transverse process fractures, right talus fracture, right distal fibular fracture, left cuboid fracture Pain appears well controlled, the patient is quite sleepy this morning. Stable on room air, discussed incentive spirometer with her today, she is pulling more than 3000 and doing well Hemodynamically stable Abdomen is soft nondistended with good bowel sounds. She has minimal appetite, discussed eating more today which I think will stimulate some bowel function Urinating appropriately H&H stable, on low-molecular weight heparin TLSO brace in place, nonweightbearing to right lower extremity, touchdown weight -bearing as tolerated to left lower extremity. Was out of the bed to the chair yesterday, will work with PT OT again today Subjective: Sleepy, states pain is well controlled, not much of an appetite Objective: Vital Signs Temp Pulse Resp BP Pulse Ox 36.8 C 76 12 123/75 H 95 11/06/16 07:58 11/06/16 07:58 11/06/16 07:58 11/06/16 07:58 11/06/16 07:58 Laboratory Results 11/03/16 04:00 11/03/16 04:00 11/05/16 11/06/16 11/07/16 05:59 05:59 05:59 Intake Total 1600 700 Output Total 2400 3200 Balance -800 -2500 PT 15.0 SEC (12.0-15.0) 11/02/16 22:45 INR 1.18 (0.83-1.16) H 11/02/16 22:45 Physical Exam - Physical Exam General Appearance: WD/WN, alert EENT: PERRL/EOMI, normal ENT inspection Neck: non-tender Respiratory: chest non-tender, lungs clear Cardiac/Chest: normal peripheral pulses, regular rate, rhythm Abdomen: normal bowel sounds, non-tender Skin: normal color Lymphatic: no adenopathy Extremities: normal range of motion, other (appropriately tender, sensation and motor intact. Minimal swelling ) Neuro/Psych: no motor/sensory deficits, alert
[2016-11-06] MEDS: NS 1,000 ML IV SCH (09:54)
[2016-11-06] MEDS: SENNOSIDES/DOCUSATE SODIUM TAB PO SCH ×2 (11:09→20:22)
[2016-11-06] MEDS: METHOCARBAMOL 750 MG TAB PO SCH ×3 (11:09→20:22)
[2016-11-06] MEDS: morphINE PCA 30 MG/30 ML PCA IV PRN (11:28)
--- NOTE | 2016-11-06 14:20 | SOAPPROG ---
SOAP Progress Note Assessment/Plan: Assessment: POD#3 ORIF right talus fracture Left cuboid fracture T5 burst fracture Plan: NWB RLE in splint WBAT LLE in [place] TLSO mobilization for spine Pain meds prn VTE chemoprophylaxis per medicine team OOB activity Ortho to follow 11/06/16 14:16 Subjective: Patient is POD#3 ORIF right talus fracture, left cuboid fracture non-op, T5 burst fracture. Pain is controlled and improving daily. Patient is stable. Objective: Vital Signs Temp Pulse Resp BP Pulse Ox 36.8 C 87 16 125/89 H 92 11/06/16 12:00 11/06/16 12:00 11/06/16 12:00 11/06/16 12:00 11/06/16 12:00 Laboratory Results 11/03/16 04:00 11/03/16 04:00 11/05/16 11/06/16 11/07/16 05:59 05:59 05:59 Intake Total 1600 700 Output Total 2400 3200 Balance -800 -2500 PT 15.0 SEC (12.0-15.0) 11/02/16 22:45 INR 1.18 (0.83-1.16) H 11/02/16 22:45 Physical exam of the right lower extremity: well fitting splint is in place. [place] on left lower extremity. Patient able to move all toes. Normal sensation to light touch in the bilateral lower extremities, distal pulse present in the bilateral lower extremities. - Time Spent With Patient Time Spent With Patient: 10 minutes was spent with the patient. ICD10 Worksheet Patient Problems: Problems Problem Status Onset Ankle fracture Acute Lumbar burst fracture Acute
[2016-11-07] MEDS: DIAZEPAM 5 MG TAB PO PRN ×2 (04:11→22:59)
[2016-11-07] MEDS: HEPARIN 5,000 UNIT/0.5 ML SYR SC SCH ×3 (06:12→22:57)
[2016-11-07] MEDS: HYDROCODONE/APAP 5/325 TAB PO PRN ×4 (06:13→22:59)
[2016-11-07] MEDS: METHOCARBAMOL 750 MG TAB PO SCH ×4 (06:18→22:59)
--- NOTE | 2016-11-07 07:39 | SOAPPROG ---
SOAP Progress Note Assessment/Plan: Assessment: ORIF right talus, stable in splint Closed Rx lt Cuboid Small posterior avulsion fx fibula rx'd non-op Plan: mobilize with TLSO. Can be Wt Bearing to tolerance on Left with boot on. Getting new spine films today Anticipate rehab stay 11/05/16 17:03 11/07/16 07:37 11/07/16 07:39 Subjective: No pain with Weight bearing on left foot with boot on tolerable pain Rt foot Objective: Vital Signs Temp Pulse Resp BP Pulse Ox 37.1 C 71 16 131/81 H 93 11/07/16 06:00 11/07/16 06:00 11/07/16 06:00 11/07/16 06:00 11/07/16 06:00 Laboratory Results 11/03/16 04:00 11/03/16 04:00 11/06/16 11/07/16 11/08/16 05:59 05:59 05:59 Intake Total 700 2200 Output Total 3200 2700 Balance -2500 -500 PT 15.0 SEC (12.0-15.0) 11/02/16 22:45 INR 1.18 (0.83-1.16) H 11/02/16 22:45 CSMT OK Moves toes well ICD10 Worksheet Patient Problems: Problems Problem Status Onset Ankle fracture Acute Lumbar burst fracture Acute
[2016-11-07] MEDS: morphINE PCA 30 MG/30 ML PCA IV PRN (08:04)
[2016-11-07] MEDS: SENNOSIDES/DOCUSATE SODIUM TAB PO SCH ×2 (08:04→22:59)
[2016-11-07] MEDS: POLYETHYLENE GLYCOL 3350 17 GM PKT PO PRN (08:05)
--- NOTE | 2016-11-07 08:11 | NEUSURGPN ---
Assessment/Plan: 31yo female 30ft fall with L5 burst fx and L1-4 TP fractures Back pain is improved, but still significant with movement on one particular place on her right Low back. 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 -upright lumbar spine x-rays IN brace complete and call stable alignment. -Ok to start Heparin SQ for DVT prophylaxis -May need spine surgery if pain can't be controlled or with any neuro changes -Call NS with any changes in status dw Dr. Roper Subjective: tolerating brace okay Objective: NAD A&Ox3 MAEx4 right leg in cast, left in splint. Wiggles, felxes knee antigravity. Catheter Insertion Date: 11/02/16 - Physician Patient Seen by Dr.: Roper Neurosurgery Physical Exam - Vitals, I&O, Labs I and O 11/06/16 11/07/16 11/08/16 05:59 05:59 05:59 Intake Total 700 2200 Output Total 3200 2700 Balance -2500 -500 Intake: Oral (ml) 700 1800 IV Infused (ml) 400 Ns 1,000 ml @ 100 mls/hr 400 IV CONT KAPIL Rx#: [id number] Output: Urine (ml) 2950 2700 Catheter 2950 2700 Emesis (ml) 250 Other: Intake Quantity Yes Sufficient Number of Voids Catheter 1 Vital Signs Temp Pulse Resp BP Pulse Ox 37.1 C 71 16 131/81 H 93 11/07/16 06:00 11/07/16 06:00 11/07/16 06:00 11/07/16 06:00 11/07/16 06:00 Laboratory Results 11/03/16 04:00 11/03/16 04:00 ICD10 Worksheet Patient Problems: Problems Problem Status Onset Ankle fracture Acute Lumbar burst fracture Acute
[2016-11-07] MEDS: ONDANSETRON 4 MG/2 ML VIAL IVP PRN (12:47)
--- NOTE | 2016-11-07 17:34 | TRAUMAPN ---
Assessment/Plan: 31-year-old female status post fall while climbing with L5 fracture and associated anterior epidural hematoma, T1 through 4 right transverse process fractures, right talus fracture, right distal fibular fracture, left cuboid fracture. TLSO brace fitted. Upright films in brace ok. Appreciate NS input. Pain controlled. Heparin started. nonweightbearing to right lower extremity, touchdown weight-bearing as tolerated to left lower extremity. Continue PT/OT. Films for reeval of possible L cuboid fx. Seen and examined with Dr. Mckee. S: frustrated but trying to stay positive. denies any left foot/ankle pain. O: alert, appropriate, nad no wob rrr abd soft, nt ext: wwp, +R foot ecchymosis and swelling, in key boots to pressure offload Objective: Vital Signs Temp Pulse Resp BP Pulse Ox 36.9 C 86 16 134/85 H 97 11/07/16 15:45 11/07/16 15:45 11/07/16 15:45 11/07/16 15:45 11/07/16 15:45 Laboratory Results 11/03/16 04:00 11/03/16 04:00 11/06/16 11/07/16 11/08/16 05:59 05:59 05:59 Intake Total 700 2200 300 Output Total 3200 2700 650 Balance -2500 -500 -350 PT 15.0 SEC (12.0-15.0) 11/02/16 22:45 INR 1.18 (0.83-1.16) H 11/02/16 22:45
[2016-11-07] MEDS: PROMETHAZINE HCL 25 MG/ML INJ IV PRN (22:54)
[2016-11-08] MEDS: METHOCARBAMOL 750 MG TAB PO SCH ×4 (05:57→20:47)
[2016-11-08] MEDS: HEPARIN 5,000 UNIT/0.5 ML SYR SC SCH ×3 (05:57→21:17)
--- NOTE | 2016-11-08 08:30 | NEUSURGPN ---
Assessment/Plan: Assessment: 31yo female 30ft fall with L5 burst fx and L1-4 TP fractures Plan: -Patient will wear LSO brace with hip spica when out of bed -Sitting xrays in brace-stable -May need spine surgery if pain can't be controlled or with any neuro changes, patient would like to avoid surgery if possible, will continue with brace management of fracture -Follow up with Dr Roper's team in 1 month with Ap/lat lumbar xrays -Call NS with any changes in status -Dr Roper saw patient as well today and discussed plan of care Subjective: Patient feeling better, low back pain Objective: NAD A&Ox3 MAEx4 right leg in cast left in splint. Wiggles, flexes knee antigravity. Neuro Check Frequency: per routine Urinary Catheter in Place: Yes Urinary Catheter Indication: Other (Use Comment) (trauma) Catheter Insertion Date: 11/02/16 - Physician Discussed Patient with Dr.: Roper Patient Seen by Dr.: Roper Neurosurgery Physical Exam - Vitals, I&O, Labs I and O 11/07/16 11/08/16 11/09/16 05:59 05:59 05:59 Intake Total 2200 2499 Output Total 2700 2650 Balance -500 -151 Intake: Oral (ml) 1800 2200 IV Infused (ml) 400 299 Ns 1,000 ml @ 100 mls/hr 400 299 IV CONT KAPIL Rx#: [id number] Output: Urine (ml) 2700 2650 Catheter 2700 2650 Other: Number of Voids Catheter 1 Vital Signs Temp Pulse Resp BP Pulse Ox 36.8 C 67 16 119/73 99 11/08/16 04:00 11/08/16 04:00 11/08/16 04:00 11/08/16 04:00 11/08/16 04:00 Laboratory Results 11/03/16 04:00 11/03/16 04:00 ICD10 Worksheet Patient Problems: Problems Problem Status Onset Ankle fracture Acute Lumbar burst fracture Acute
--- NOTE | 2016-11-08 08:47 | SOAPPROG ---
SOAP Progress Note Assessment/Plan: Assessment/Plan: s/p ORIF R talus fracture POD#5; L cuboid fracture , L5 burst fracture - Continue pain management - Continue VTE chemoprophylaxis per medicine team - WBAT LLE - NWB RLE - OOB activity per NS 11/04/16 09:49 11/08/16 08:45 11/08/16 08:47 Subjective: Pt states she is doing okay. Having a lot of pain in her back when up. Pain in BLE well-controlled. Pt denies fever, chills, chest pain, SOB, abdominal pain , N/V/D, numbness, tingling and calf pain. Objective: Vital Signs Temp Pulse Resp BP Pulse Ox 37.0 C 86 16 121/70 H 95 11/08/16 08:00 11/08/16 08:00 11/08/16 08:00 11/08/16 08:00 11/08/16 08:00 Laboratory Results 11/03/16 04:00 11/03/16 04:00 11/07/16 11/08/16 11/09/16 05:59 05:59 05:59 Intake Total 2200 2499 Output Total 2700 2650 Balance -500 -151 PT 15.0 SEC (12.0-15.0) 11/02/16 22:45 INR 1.18 (0.83-1.16) H 11/02/16 22:45 Physical Exam - Physical Exam General Appearance: alert, no apparent distress Cardiac/Chest: normal peripheral pulses Skin: normal color, warm/dry Extremities: normal inspection, normal capillary refill, pedal edema, other ( Splint intact RLE), No calf tenderness, No swelling, No Sophia's sign Neuro/Psych: no motor/sensory deficits, alert, normal mood/affect, oriented x 3 ICD10 Worksheet Patient Problems: Problems Problem Status Onset Ankle fracture Acute Lumbar burst fracture Acute
[2016-11-08] MEDS: SENNOSIDES/DOCUSATE SODIUM TAB PO SCH ×2 (09:31→21:18)
[2016-11-08] MEDS: MAGNESIUM HYDROXIDE 30 ML UDCUP PO PRN ×2 (09:36→21:18)
[2016-11-08] MEDS: LORazepam 2 MG/ML INJ IVP PRN (12:47)
[2016-11-08] MEDS: HYDROmorphONE/DILAUDID 2 MG/ML INJ IVP PRN (17:04)
[2016-11-08] MEDS ORDERED: oxyCODONE IR 5 MG TAB PO PRN ×2 (17:11)
--- NOTE | 2016-11-08 17:11 | SOAPPROG ---
SOAP Progress Note Assessment/Plan: Assessment/Plan: 31-year-old woman status post fall from abbey 25 foot with lumbar spine injuries and talus fracture. She also sustained an avulsion fracture of the fibula and cuboidal fracture of her left foot which is non tender She is weightbearing as tolerated on left lower extremity Nonweightbearing right lower extremity Pain has been controlled with BILINGUAL TEACHER ASSISTANT Regular rate and rhythm Clear to auscultation Abdomen soft nontender nondistended Good capillary refill right lower extremity splinted no tenderness left foot TLSO brace in the room. Sitting x-rays in brace shows stable alignment. Neurosurgery to perform surgery only if she has deterioration in her status or continued pain Orthopedic evaluation with weight-bearing status as noted above Continue current care Change from BILINGUAL TEACHER ASSISTANT to oral medications. Breakthrough IV medications as well. All questions addressed. PTSD as expected. Anxiolytics p.r.n. 11/08/16 17:08 Objective: Vital Signs Temp Pulse Resp BP Pulse Ox 37.0 C 85 16 112/85 H 94 11/08/16 08:00 11/08/16 11:43 11/08/16 11:43 11/08/16 11:43 11/08/16 11:43 Laboratory Results 11/03/16 04:00 11/03/16 04:00 11/07/16 11/08/16 11/09/16 05:59 05:59 05:59 Intake Total 2200 2753 148 Output Total 2700 4646 800 Balance -500 -151 -652 PT 15.0 SEC (12.0-15.0) 11/02/16 22:45 INR 1.18 (0.83-1.16) H 11/02/16 22:45 ICD10 Worksheet Patient Problems: Problems Problem Status Onset Ankle fracture Acute Lumbar burst fracture Acute
[2016-11-08] MEDS: PROMETHAZINE HCL 25 MG/ML INJ IV PRN (20:47)
[2016-11-08] MEDS: oxyCODONE IR 5 MG TAB PO PRN (21:18)
[2016-11-08] MEDS: ACETAMINOPHEN 325 MG TAB PO PRN (21:18)
[2016-11-08] MEDS: DIAZEPAM 5 MG TAB PO PRN (21:18)
[2016-11-09] MEDS: oxyCODONE IR 5 MG TAB PO PRN ×4 (03:14→23:00)
[2016-11-09] MEDS: DIAZEPAM 5 MG TAB PO PRN ×2 (03:14→23:00)
[2016-11-09] MEDS: ACETAMINOPHEN 325 MG TAB PO PRN (03:15)
[2016-11-09] MEDS: HEPARIN 5,000 UNIT/0.5 ML SYR SC SCH ×3 (05:19→20:56)
[2016-11-09] MEDS: METHOCARBAMOL 750 MG TAB PO SCH ×4 (05:20→20:05)
--- NOTE | 2016-11-09 07:43 | NEUSURGPN ---
Assessment/Plan: Assessment: 31yo female s/p 30ft fall with L5 burst fx and L1-4 TP fractures Plan: -Patient will wear LSO brace with hip spica when out of bed at all times -Sitting xrays in brace-stable -May need spine surgery if any neuro changes or pain worsens-patient would like to avoid surgery if possible, will continue with brace management of fracture and continue to follow -Follow up with Dr Roper's team in 1 month with Ap/lat lumbar xrays -Call NS with any changes in status -Dr Roper saw patient as well yesterday and discussed plan of care-pt in agreement -NS to sign off-follow up in 1 month with Xrays (pt can call office for order) per Dr Higuera recommendations Subjective: Awake and alert. Resting this am. No sorenson/neck/chest/abd or gu complaints. No f /c/n/v/d. Objective: AAO x 3/NAD MAEx4 right leg in cast left in splint. Wiggles, flexes knee antigravity. Neuro Check Frequency: per routine Urinary Catheter in Place: No Catheter Insertion Date: 11/02/16 - Physician Discussed Patient with Dr.: Roper Neurosurgery Physical Exam - Vitals, I&O, Labs I and O 11/08/16 11/09/16 11/10/16 05:59 05:59 05:59 Intake Total 2499 148 Output Total 2650 2400 Balance -151 -2252 Intake: Oral (ml) 2200 IV Infused (ml) 299 148 Ns 1,000 ml @ 100 mls/hr 299 148 IV CONT KAPIL Rx#: [id number] Output: Urine (ml) 2650 2400 Catheter 2650 2400 Other: Intake Quantity Yes Sufficient Number of Voids Catheter 1 Vital Signs Temp Pulse Resp BP Pulse Ox 36.8 C 71 15 124/76 H 96 11/09/16 04:00 11/09/16 04:00 11/09/16 04:00 11/09/16 04:00 11/09/16 04:00 Laboratory Results 11/03/16 04:00 11/03/16 04:00 ICD10 Worksheet Patient Problems: Problems Problem Status Onset Ankle fracture Acute Lumbar burst fracture Acute
[2016-11-09] MEDS: POLYETHYLENE GLYCOL 3350 17 GM PKT PO PRN (08:57)
[2016-11-09] MEDS: SENNOSIDES/DOCUSATE SODIUM TAB PO SCH ×2 (08:58→20:05)
--- NOTE | 2016-11-09 10:52 | TRAUMAPN ---
- Problem/Surgery Performed (1) Fracture, talus closed Qualifiers: Encounter type: initial encounter Talus location: T Fracture morphology: other fracture Fracture alignment: F Laterality: right Fracture healing: F Qualified Code(s): S92.191A - Other fracture of right talus, initial encounter for closed fracture (2) Lumbar transverse process fracture Qualifiers: Encounter type: initial encounter Fracture type: closed Fracture healing : F Qualified Code(s): S32.008A - Other fracture of unspecified lumbar vertebra, initial encounter for closed fracture (3) Right fibular fracture Qualifiers: Encounter type: initial encounter Fibula location: distal Fracture type: closed Open fracture type: O Fracture morphology: unspecified fracture morphology Fracture alignment: F Salter-Horta Fracture Type: S Fracture healing: F Qualified Code(s): S82.831A - Other fracture of upper and lower end of right fibula, initial encounter for closed fracture (5) Fall Qualifiers: Encounter type: E (6) Obstipation Assessment/Plan: no BM x 7 days Assessment/Plan: s/p fall while rock climbing with multiple injuries progressing slowly/will benefit from removal of right hip spica and allow for increased mobility with her TLSO brace, though she will remain non-weight bearing on the RLE bowel program Subjective: awake and alert/back pain with movement unable to tolerate hip spica with TLSO brace Objective: Vital Signs Temp Pulse Resp BP Pulse Ox 36.6 C 84 15 101/77 100 11/09/16 08:00 11/09/16 08:00 11/09/16 08:00 11/09/16 08:00 11/09/16 08:00 Laboratory Results 11/03/16 04:00 11/03/16 04:00 11/08/16 11/09/16 11/10/16 05:59 05:59 05:59 Intake Total 2499 148 Output Total 2650 2400 Balance -151 -2252 PT 15.0 SEC (12.0-15.0) 11/02/16 22:45 INR 1.18 (0.83-1.16) H 11/02/16 22:45 - C-Spine Clearance Cervical Spine Cleared: Yes Physical Exam - Physical Exam General Appearance: no apparent distress Respiratory: lungs clear, normal breath sounds Cardiac/Chest: regular rate, rhythm Abdomen: normal bowel sounds, non-tender, soft Pelvic Exam: deferred Rectal: deferred Back: Other (right paralumbar tenderness) Neuro/Psych: no motor/sensory deficits, alert, normal mood/affect, oriented x 3
[2016-11-09] MEDS ORDERED: BISACODYL 10 MG SUPP PR ONE (10:59)
[2016-11-09] MEDS: LACTULOSE 20 GM/30 ML UDCUP PO SCH ×2 (16:57→20:07)
[2016-11-09] MEDS: HYDROmorphONE/DILAUDID 2 MG/ML INJ IVP PRN (20:02)
[2016-11-09] MEDS: ONDANSETRON 4 MG/2 ML VIAL IVP PRN (20:54)
[2016-11-10] MEDS: HYDROmorphONE/DILAUDID 2 MG/ML INJ IVP PRN ×2 (00:05→04:14)
[2016-11-10] MEDS: ACETAMINOPHEN 325 MG TAB PO PRN ×2 (00:36→08:19)
[2016-11-10] MEDS: oxyCODONE IR 5 MG TAB PO PRN ×3 (03:01→20:52)
[2016-11-10] MEDS: HEPARIN 5,000 UNIT/0.5 ML SYR SC SCH ×3 (05:26→20:50)
[2016-11-10] MEDS: METHOCARBAMOL 750 MG TAB PO SCH ×4 (05:26→20:52)
[2016-11-10] MEDS: ONDANSETRON 4 MG/2 ML VIAL IVP PRN (06:16)
--- NOTE | 2016-11-10 07:10 | SOAPPROG ---
SOAP Progress Note Assessment/Plan: Assessment/Plan: s/p ORIF R talus fracture POD#6; L cuboid fracture , L5 burst fracture - Continue pain management - Continue VTE chemoprophylaxis per medicine team - WBAT LLE - NWB RLE - OOB activity per NS - Okay for discharge from an orthopedic standpoint 11/04/16 09:49 11/08/16 08:45 11/08/16 08:47 11/10/16 07:07 Subjective: Pt states she feels a little better this morning and pain in her BLE is minimal. TLSO brace fits much better since attachment has been removed. Pt denies fever, chills, chest pain, abdominal pain, N/V/D, numbness, tingling and calf pain. Objective: Vital Signs Temp Pulse Resp BP Pulse Ox 36.8 C 79 16 121/88 H 96 11/09/16 23:02 11/09/16 23:02 11/09/16 23:02 11/09/16 23:02 11/09/16 23:02 Laboratory Results 11/03/16 04:00 11/03/16 04:00 11/09/16 11/10/16 11/11/16 05:59 05:59 05:59 Intake Total 148 400 Output Total 2400 50 Balance -2252 350 PT 15.0 SEC (12.0-15.0) 11/02/16 22:45 INR 1.18 (0.83-1.16) H 11/02/16 22:45 Physical Exam - Physical Exam General Appearance: alert, no apparent distress Peripheral Pulses: 2+: dorsalis-pedis (R), dorsalis-pedis (L) Skin: normal color, warm/dry Extremities: normal inspection, normal capillary refill, pedal edema (minimal RLE), No calf tenderness, No swelling, No Sophia's sign Neuro/Psych: no motor/sensory deficits, alert, normal mood/affect, oriented x 3 ICD10 Worksheet Patient Problems: Problems Problem Status Onset Activity involving mountain climbing, rock climbing, or wall climbing Acute Ankle fracture Acute Fall Acute Fracture, talus closed Acute Lumbar burst fracture Acute Lumbar transverse process fracture Acute Obstipation Acute Right fibular fracture Acute
[2016-11-10] MEDS: SENNOSIDES/DOCUSATE SODIUM TAB PO SCH ×2 (08:18→20:52)
[2016-11-10] MEDS: LACTULOSE 20 GM/30 ML UDCUP PO SCH ×3 (08:18→20:54)
[2016-11-10] MEDS: PROMETHAZINE HCL 25 MG/ML INJ IV PRN (08:32)
--- NOTE | 2016-11-10 13:31 | TRAUMAPN ---
Assessment/Plan: s/p fall rock climbing L5 burst - brace S/P ORIF R foot, NWB WBAT LLE Awaiting rehab S: Feeling better today Objective: Vital Signs Temp Pulse Resp BP Pulse Ox 36.8 C 68 16 118/77 92 11/10/16 07:14 11/10/16 07:14 11/10/16 07:14 11/10/16 07:14 11/10/16 07:14 Laboratory Results 11/03/16 04:00 11/03/16 04:00 11/09/16 11/10/16 11/11/16 05:59 05:59 05:59 Intake Total 148 400 Output Total 2400 50 Balance -2252 350 PT 15.0 SEC (12.0-15.0) 11/02/16 22:45 INR 1.18 (0.83-1.16) H 11/02/16 22:45 - C-Spine Clearance Cervical Spine Cleared: Yes Physical Exam - Physical Exam General Appearance: WD/WN, alert, no apparent distress EENT: PERRL/EOMI, normal ENT inspection Respiratory: lungs clear, normal breath sounds Cardiac/Chest: regular rate, rhythm Peripheral Pulses: 2+: dorsalis-pedis (L) Abdomen: normal bowel sounds, non-tender, soft Extremities: other (r leg in splint) Neuro/Psych: no motor/sensory deficits
[2016-11-11] MEDS: DIAZEPAM 5 MG TAB PO PRN (02:40)
[2016-11-11] MEDS: oxyCODONE IR 5 MG TAB PO PRN ×4 (02:40→22:21)
[2016-11-11] MEDS: METHOCARBAMOL 750 MG TAB PO SCH ×4 (05:29→22:14)
[2016-11-11] MEDS: HEPARIN 5,000 UNIT/0.5 ML SYR SC SCH ×3 (05:29→22:14)
--- NOTE | 2016-11-11 07:56 | SOAPPROG ---
SOAP Progress Note Assessment/Plan: Assessment/Plan: s/p ORIF R talus fracture POD#7; L cuboid fracture , L5 burst fracture - Continue pain management - Continue VTE chemoprophylaxis per medicine team - WBAT LLE - NWB RLE - OOB activity per NS - Okay for discharge from an orthopedic standpoint - Follow-up with Dr. Duarte in the office 10-14 days post-operatively, call to schedule 11/04/16 09:49 11/08/16 08:45 11/08/16 08:47 11/10/16 07:07 11/11/16 07:54 Subjective: Pt states she is doing better, minimal pain in the lower extremities. Ambulation is easier. Pt denies fever, chills, chest pain, SOB, abdominal pain , N/V/D, numbness, tingling, and calf pain. Objective: Vital Signs Temp Pulse Resp BP Pulse Ox 36.8 C 68 14 94/62 L 95 11/11/16 07:43 11/11/16 07:43 11/11/16 07:43 11/11/16 07:43 11/11/16 07:43 Laboratory Results 11/03/16 04:00 11/03/16 04:00 11/10/16 11/11/16 11/12/16 05:59 05:59 05:59 Intake Total 400 1200 Output Total 50 Balance 350 1200 PT 15.0 SEC (12.0-15.0) 11/02/16 22:45 INR 1.18 (0.83-1.16) H 11/02/16 22:45 Physical Exam - Physical Exam General Appearance: alert, no apparent distress Cardiac/Chest: normal peripheral pulses Skin: normal color, warm/dry Extremities: normal inspection, normal capillary refill, other (Splint intact RLE), No pedal edema, No calf tenderness, No swelling, No Sophia's sign Neuro/Psych: no motor/sensory deficits, alert, normal mood/affect, oriented x 3 ICD10 Worksheet Patient Problems: Problems Problem Status Onset Activity involving mountain climbing, rock climbing, or wall climbing Acute Ankle fracture Acute Fall Acute Fracture, talus closed Acute Lumbar burst fracture Acute Lumbar transverse process fracture Acute Obstipation Acute Right fibular fracture Acute
[2016-11-11] MEDS: LACTULOSE 20 GM/30 ML UDCUP PO SCH ×3 (09:00→22:13)
[2016-11-11] MEDS: SENNOSIDES/DOCUSATE SODIUM TAB PO SCH ×2 (09:51→22:12)
--- NOTE | 2016-11-11 22:21 | TRAUMAPN ---
- Problem/Surgery Performed (1) Fracture, talus closed Assessment/Plan: immobilization Qualifiers: Encounter type: initial encounter Talus location: T Fracture morphology: other fracture Fracture alignment: F Laterality: right Fracture healing: F Qualified Code(s): S92.191A - Other fracture of right talus, initial encounter for closed fracture (2) Lumbar transverse process fracture Assessment/Plan: non-operative management with TLSO brace per neurosurgery Qualifiers: Encounter type: initial encounter Fracture type: closed Fracture healing : F Qualified Code(s): S32.008A - Other fracture of unspecified lumbar vertebra, initial encounter for closed fracture (3) Right fibular fracture Assessment/Plan: s/p ORIF Dr. Duarte Qualifiers: Encounter type: initial encounter Fibula location: distal Fracture type: closed Open fracture type: O Fracture morphology: unspecified fracture morphology Fracture alignment: F Salter-Horta Fracture Type: S Fracture healing: F Qualified Code(s): S82.831A - Other fracture of upper and lower end of right fibula, initial encounter for closed fracture (5) Fall Qualifiers: Encounter type: E (6) Obstipation Assessment/Plan: resolved with bowel program Assessment/Plan: Renetta is recovering from a climbing fall with multiple injuries and is stable for transfer to Rehab from a surgical viewpoint will continue PT/OT/supportive care in the interim Objective: Vital Signs Temp Pulse Resp BP Pulse Ox 36.8 C 85 16 113/77 93 11/11/16 16:00 11/11/16 16:00 11/11/16 16:00 11/11/16 16:00 11/11/16 16:00 Laboratory Results 11/03/16 04:00 11/03/16 04:00 11/10/16 11/11/16 11/12/16 05:59 05:59 05:59 Intake Total 400 1200 1000 Output Total 50 Balance 350 1200 1000 PT 15.0 SEC (12.0-15.0) 11/02/16 22:45 INR 1.18 (0.83-1.16) H 11/02/16 22:45 - C-Spine Clearance Cervical Spine Cleared: Yes Physical Exam - Physical Exam General Appearance: no apparent distress Neck: non-tender Respiratory: lungs clear, normal breath sounds Cardiac/Chest: regular rate, rhythm Abdomen: normal bowel sounds, non-tender, soft Rectal: deferred Back: Other (tender paraspinous right lower) Skin: warm/dry Extremities: other (RLE posterior splint/LLE ankle immobilizer -distal neurovascular intact) Neuro/Psych: alert, normal mood/affect Time Spent w/Patient (minutes): 20
[2016-11-12] MEDS: oxyCODONE IR 5 MG TAB PO PRN (04:07)
[2016-11-12] MEDS: METHOCARBAMOL 750 MG TAB PO SCH ×2 (04:08→13:48)
[2016-11-12 07:50] VITALS: BP 115/72; PULSE 72; RESP 16; TEMP 98.4; O2SAT 96
--- NOTE | 2016-11-12 09:29 | PDIAF ---
- Diagnosis Diagnosis: l 5 burst fx, l talar fx,fibula fx Code Status: Full Code - Medication Management Discharge Medications: Medications to Continue on Transfer NK [No Known Home Meds] 11/03/16 [Last Taken Unknown] Discharge Medications: Refer to the Discharge Home Medication list for PRN reason. - Orders Services needed: Registered Nurse, Physical Therapy, Occupational Therapy Diet Recommendation: no restrictions on diet Diet Texture: Regular Texture Diet - Follow Up Care Current Providers and Referrals: Patient,NotPresent [Primary Care Provider] - As per Instructions Rajan Roper MD [Medical Doctor] - (follow up in 1 months with xrays (call office for appt and order for xrays)) El Duarte MD [Medical Doctor] - (Follow-up with Dr. Duarte 10-14 days post-operatively. Call the office to schedule this appointment, or sooner if any new or worsening symptoms.)
--- NOTE | 2016-11-12 10:24 | GDS ---
[f rep st] TRANSFER SUMMARY PRESENT ILLNESS: A 31-year-old female, fell 20 feet while rock climbing. HOSPITAL COURSE: Patient had multiple injuries including an L5 burst fracture, a left talar fractur e, left fibula fracture. She was seen in consultation by Neurosurgery and Dr. Duarte [facility]. On 11/03 she underwent open reduction internal fixation of the right talar fracture, bone g rafting. A brace has been supplied for her L5 burst fracture. As she is nonweightbearing on both f eet she is being sent for physical therapy and rehab to the [facility]. Other injuries include d a small epidural hematoma anteriorly and the left cuboid fracture. She has follow up arranged wit h both Dr. Duarte and Dr. Roper. She is to wear the brace at all times when out of bed. /[id number]/MODL
[2016-11-12] MEDS: HEPARIN 5,000 UNIT/0.5 ML SYR SC SCH ×2 (10:37→13:48)
[2016-11-12] MEDS: SENNOSIDES/DOCUSATE SODIUM TAB PO SCH (10:38)
[2016-11-12] MEDS: LACTULOSE 20 GM/30 ML UDCUP PO SCH (10:38)
== END 2016-11-12 16:00 | DRG 505 ==
LOC: F2N 11-03 00:27 → F3N 11-04 16:38
PROVIDERS: ADMIT Surgery; ATTEND Surgery
PROC: 0SSH04Z Reposition Right Tarsal Joint with Internal Fixation Device, Open Approach (ICD-10-PCS; principal; 2016-11-03 12:00)
DX: S32.051A Stable burst fracture of fifth lumbar vertebra, initial encounter for closed fracture (principal); S92.121A Displaced fracture of body of right talus, initial encounter for closed fracture; S82.832A Other fracture of upper and lower end of left fibula, initial encounter for closed fracture; S92.212A Displaced fracture of cuboid bone of left foot, initial encounter for closed fracture; W17.89XA Other fall from one level to another, initial encounter; Y93.31 Activity, mountain climbing, rock climbing and wall climbing
CPT/HCPCS: 92523-GN; 96374; 97116-GP; 97163-GP; 97167-GO; 97530-GO; 97530-GP; 97535-GO; C1713; C1762; C1769; G0480; J0690; J1100; J1170; J2060; J2270; J2405; J2550; J2704; J3010

== ENCOUNTER 2016-11-11 11:45 | Inpatient (IN) | payer BC, MEDICAID ==
[2016-11-12] MEDS ORDERED: MAG HYDROX/AL HYDROX/SIMETH 30 ML UDCUP PO PRN (17:22)
[2016-11-12] MEDS ORDERED: POLYETHYLENE GLYCOL 3350 17 GM PKT PO PRN (17:43)
[2016-11-12] MEDS ORDERED: diphenhydrAMINE 25 MG CAP PO PRN (17:43)
[2016-11-12] MEDS ORDERED: DIAZEPAM 5 MG TAB PO PRN (17:43)
--- NOTE | 2016-11-12 17:52 | PDOREHIP ---
Admission IRF-[facility] - Admission - 3 Day Assessment Period Admission Date/Day 1: 11/12/16 Day 2: 11/13/16 Day 3: 11/14/16 - Skin Conditions Unhealed Pressure Ulcer (1 or more/Stage 1 or >)-Admission: 0. No
--- NOTE | 2016-11-12 20:16 | GHP ---
[f rep st] HISTORY AND PHYSICAL DATE OF ADMISSION: 11/12/2016 REFERRING FACILITY: [facility]. REFERRING PHYSICIAN: Linda Aguilar MD DATE OF ONSET: 11/02/2016. TIME SEEN: 5:15 p.m. CONSULTATIONS: N/A. DIAGNOSES: Rehabilitation diagnoses: Multitrauma, status post rock climbing; right talus fracture, status post ORIF. Cuboid fracture, left foot. L5 burst fracture. Right fibular fracture. Acute pain syndrome, secondary to above. ETIOLOGIC DIAGNOSES: 14.9. DATE OF SURGERY: 11/03/2016. HISTORY OF PRESENT ILLNESS: 31-year-old female who was in good health when she was injured in a rock climbing accident on 11/02/2016. The patient states she fell greater than 20 feet. She was helmeted. She states she did not hit her head, and there was no loss of consciousness. She landed on her low back and buttock, and experienced immediate onset of low back and bilateral lower extremity pain. Underwent rescue by [facility], and transferred to the Emergency Department at [facility]. Workup at that time including multiple x-rays showed fracture of the right talus, closed, lumbar transverse process fracture, right fibular fracture, and left cuboid fracture. Orthopedic consultation was obtained. She underwent ORIF, right talus fracture on 11/03/2016, and is currently nonweightbearing, right lower extremity. She was prescribed TLSO for left L5 burst fracture. The brace was to be worn at all times, except for when head of bed less than 30 degrees. Otherwise, she was to wear the brace while out of bed. She had PT and OT while at [facility] without much difficulty, and reportedly was ambulating between 100 and 150 feet with the FWW without difficulty. She rates current pain level as 2/10, predominantly involving her lower back. She does have some mild discomfort of both ankles. She reports her pain is well controlled with current pain medications, which include OxyContin and oxycodone. She is also taking Robaxin 500 mg q.i.d. for muscle spasms. She also has Valium 5 mg p.o. q.6 hours p.r.n. muscle spasm, and acetaminophen 325-650 p.o. q.4 hours. She reports her pain is well controlled with this. She denies neck, shoulder, elbow or wrist pain. She does have some discomfort in the hypothenar eminence of the left hand without pain with movement or swelling. She denies pain in the pelvic region, hip girdle, or knees. PAST MEDICAL HISTORY: Otherwise noncontributory. 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 She lives with her boyfriend in an apartment with several steps up to the first floor. She reports recreational marijuana use. Social drinker. MEDICATIONS: Prehospital medications: None. Admit medications: Oxycodone IR 5-10 mg p.o. q.4 hours. Benadryl 25-50 mg p.o. q.6 hours. Docusate 1-2 tabs p.o. b.i.d. Polyethylene glycol 17 g p.r.n. Robaxin 750 p.o. q.i.d. Valium 5 mg p.o. q.6 hours. Acetaminophen 325-650 p.o. q.4 hours. ALLERGIES: NKDA. FAMILY HISTORY: Noncontributory. REVIEW OF SYSTEMS: GI: Denies abdominal pain or constipation. Denies dyspepsia. : Denies flank pain or hematuria. PSYCHIATRIC: Denies anxiety or depression. MUSCULOSKELETAL: As per HPI. NEUROLOGICAL: Denies headache or visual disturbance. HEENT: Denies dizziness. Denies dysphagia. LYMPH: Denies lower extremity edema. CARDIOVASCULAR: Denies irregular heart rate. Denies chest pain. RESPIRATORY: Denies shortness of breath. Skin: No rash or breakdown PREADMIT FUNCTION: She was functioning independently and without restrictions. CURRENT LEVEL OF FUNCTION: She is nonweightbearing, right lower extremity. PHYSICAL EXAMINATION: GENERAL: WDWN, pleasant female, who appears comfortable lying in bed. HEENT: Pupils are equal, round, and reactive to light and accommodation. EOMI. PSYCHIATRIC: Alert and oriented x3. Pleasant. Appropriate. Oriented to person, place, and time. LYMPH: No cervical or axillary lymphadenopathy. PULMONARY: Normal chest wall expansion with deep inspiration. Lungs clear to auscultation in all interiano. CARDIAC: Regular rate and rhythm. No murmurs, rubs or gallops. No lower extremity edema. No upper extremity edema. GI: Abdomen soft, nontender, normoactive bowel sounds all 4 quadrants. : No CVA tenderness. No suprapubic tenderness. No Upton catheter in place. SKIN: Warm all 4 extremities. Small ecchymoses medial aspect of left arm. No ecchymoses noted in the left hand. Small ecchymoses noted in the lumbar region. SOFT TISSUE: Normal tone of the cervical, thoracic and lumbar paraspinals. There is tenderness in the lumbar region, particularly L1 and L5. MUSCULOSKELETAL: Grossly normal upper extremity range of motion, right and left shoulders, elbows, and wrists. Normal and pain free range of motion right and left hips, including internal/external rotation. Normal in pain, free right and left knee flexion and extension. Right and left ankle range of motion: Deferred secondary to casting. SPECIAL TESTING: Negative pelvic compression distraction test. NEUROLOGICAL: Grossly normal upper extremity motor exam. Grossly normal right and left iliopsoas, quadriceps , hamstrings. Right and left ankle dorsiflexors and plantar flexors deferred secondary to casting. LABS: None available. IMPRESSION/PLAN: 1. Multitrauma, status post rock climbing injury. L5 burst fracture. Patient will wear a TLSO when head of bed greater than 30 degrees and while out of bed. She is nonweightbearing, right lower extremity, due to ORIF, right talus fracture. Weightbearing as tolerated, left lower extremity, with a walking cast. 2. Pain management: Oxycodone IR 5-10 p.o. q.4 hours. Robaxin 750 mg p.o. q.6 hours for muscle spasms. She can also take Valium 5 mg p.o. q.6 hours p.r.n. muscle spasms. Additional pain management: Acetaminophen 325-650 mg p.o. q.4 hours. 3. Gait dysfunction: Nonweightbearing right lower extremity. Ambulate with a walker. Patient advised to wear TLSO whenever she sits up and gets out of bed. She will be contact guard assist with the FWW for now. 4. Bowel/bladder care: She is continent of both bowel and bladder. 5. Skin: No evidence of skin ulceration, breakdown or rash. 6. Orthotics: She will wear the TLSO with head of bed greater than 30 degrees , and when sitting at bedside and went out of bed. 7. Medical management: No active medical problems. She is currently medically stable. 8. DVT Prophalaxis- Her d/c medication list did not inclue any prophalis medications. Apparently she was receiving Heparin 5000 units SQ tid while at [facility]. Expected length of stay: 7-10 days for comprehensive physical and occupational therapy, 90 minutes each discipline per day. /[id number]/MODL MTDD
[2016-11-12] MEDS: METHOCARBAMOL 750 MG TAB PO SCH (21:15)
[2016-11-12] MEDS: SENNOSIDES/DOCUSATE SODIUM TAB PO SCH (21:17)
[2016-11-13] MEDS: oxyCODONE IR 5 MG TAB PO PRN ×4 (01:20→23:11)
[2016-11-13] MEDS: METHOCARBAMOL 750 MG TAB PO SCH ×4 (06:17→21:19)
--- NOTE | 2016-11-13 09:32 | SOAPPROG ---
SOAP Progress Note Assessment/Plan: Assessment: IMPRESSION/PLAN: 1. Multitrauma, status post rock climbing injury. L5 burst fracture. Patient will wear a TLSO when head of bed greater than 30 degrees and while out of bed. She is nonweightbearing, right lower extremity, due to ORIF, right talus fracture. Weightbearing as tolerated, left lower extremity, with a walking cast. 2. Pain management: Oxycodone IR 5-10 p.o. q.4 hours. Robaxin 750 mg p.o. q.6 hours for muscle spasms. She can also take Valium 5 mg p.o. q.6 hours p.r.n. muscle spasms. Additional pain management: Acetaminophen 325-650 mg p.o. q.4 hours. 3. Gait dysfunction: Nonweightbearing right lower extremity. Ambulate with a walker. Patient advised to wear TLSO whenever she sits up and gets out of bed. She will be contact guard assist with the FWW for now. 4. Bowel/bladder care: She is continent of both bowel and bladder. 5. Skin: No evidence of skin ulceration, breakdown or rash. 6. Orthotics: She will wear the TLSO with head of bed greater than 30 degrees , and when sitting at bedside and went out of bed. 7. Medical management: No active medical problems. She is currently medically stable. 8. DVT Prophylaxis- Her d/c medication list did not include any prophylaxis medications. Apparently she was receiving Heparin 5000 units SQ tid while at [facility]. Nursing has contacted the Ortho service who said she probably needs continued prophylaxis but they will defer to the Spine surgeon who saw her. Apparently [facility] spine surgeon said it was up to us. Therefore will begin Lovenox 40 per day. This was d/w pharmacy as well. 11/13/16 09:28 Subjective: No complaints this am. Objective: Vital Signs Temp Pulse Resp BP Pulse Ox 36.8 C 59 L 16 106/66 95 11/13/16 06:18 11/13/16 06:18 11/13/16 06:18 11/13/16 06:18 11/13/16 06:18 11/12/16 11/13/16 11/14/16 05:59 05:59 05:59 Intake Total 1240 Output Total 700 Balance 540 Physical Exam - Physical Exam General Appearance: WD/WN, alert, no apparent distress Neck: non-tender, full range of motion Respiratory: lungs clear, normal breath sounds Cardiac/Chest: No normal peripheral pulses, No edema Abdomen: normal bowel sounds, non-tender, soft Skin: warm/dry Extremities: No calf tenderness, No swelling Neuro/Psych: No cognition abnormalities, No speech abnormalities ICD10 Worksheet Patient Problems: Problems Problem Status Onset Activity involving mountain climbing, rock climbing, or wall climbing Acute Ankle fracture Acute Fall Acute Fracture, talus closed Acute Lumbar burst fracture Acute Lumbar transverse process fracture Acute Obstipation Acute Right fibular fracture Acute
[2016-11-13] MEDS: SENNOSIDES/DOCUSATE SODIUM TAB PO SCH ×2 (09:50→22:37)
[2016-11-13] MEDS: ACETAMINOPHEN 325 MG TAB PO PRN ×2 (10:31→19:32)
[2016-11-13] MEDS: ENOXAPARIN 40 MG/0.4 ML SYR SC SCH (11:20)
[2016-11-14] MEDS: METHOCARBAMOL 750 MG TAB PO SCH ×2 (05:58→12:10)
[2016-11-14] MEDS: SENNOSIDES/DOCUSATE SODIUM TAB PO SCH ×2 (08:21→22:21)
[2016-11-14] MEDS: oxyCODONE IR 5 MG TAB PO PRN ×4 (09:08→23:20)
[2016-11-14] MEDS: ENOXAPARIN 40 MG/0.4 ML SYR SC SCH (09:09)
--- NOTE | 2016-11-14 09:09 | SOAPPROG ---
SOAP Progress Note Assessment/Plan: Assessment: * Multitrauma, status post rock climbing injury. L5 burst fracture. Initial FIM 90. Independent in rook today 11/14/16. Has walked 60' FWW, did 6 steps B rails CGA/SBA. Accomplished bathing, dressing and toileting with set-up, mod I. Continue PT, OT to opitimize mobility and functional status. Continue LSO when head of bed greater than 30 degrees and while out of bed. She is nonweightbearing, right lower extremity, due to ORIF, right talus fracture. Weightbearing as tolerated, left lower extremity, with a walking cast. * Pain management: Oxycodone IR 5-10 p.o. q.4 hours. She's unclear on msucle spasm and need for robaxin ; will change to PRN.. Has not used diazepam; will d /c 11/14/16. Continue acetaminophen 325-650 mg p.o. q.4 hours. * Bowel/bladder care: She is continent of both bowel and bladder. * Skin: No evidence of skin ulceration, breakdown or rash. * Orthotics: She will wear the TLSO with head of bed greater than 30 degrees, and when sitting at bedside and went out of bed.. * DVT Prophylaxis- foot fractures do not present high enough risk to merit prolonged DVT prophylaxis. Will d/c enoxaparin starting 11/15/16. Attended staffing, 15 min. D/W case mgmt, nursing, pharmacy, academic vice president, PT, OT. Plan discharge 11/17/16. Lives with boyfriend; he and and other friends/ family are available to help. 11/14/16 13:50 Subjective: R ankle pain is orse than back pain this morning, but overall adequate control. Moved bowels this morning. No f/c, cough/dyspnea. Objective: Vital Signs Temp Pulse Resp BP Pulse Ox 36.4 C 64 16 85/50 L 96 11/14/16 05:58 11/14/16 05:58 11/14/16 05:58 11/14/16 05:58 11/14/16 05:58 11/13/16 11/14/16 11/15/16 05:59 05:59 05:59 Intake Total 1240 1546 Output Total 700 Balance 540 1546 - Time Spent With Patient Time Spent With Patient: Greater than 35 minutes floor time today, including more than 50% of time in coordination of care during staffing, and counseling patient. Physical Exam - Physical Exam General Appearance: WD/WN, alert, no apparent distress Respiratory: No respiratory distress, No accessory muscle use Skin: normal color, warm/dry Extremities: other (Casted on R, toes warm and mobile. Walking boot LLE.) Neuro/Psych: no motor/sensory deficits, alert, normal mood/affect, oriented x 3 ICD10 Worksheet Patient Problems: Problems Problem Status Onset Activity involving mountain climbing, rock climbing, or wall climbing Acute Ankle fracture Acute Fall Acute Fracture, talus closed Acute Lumbar burst fracture Acute Lumbar transverse process fracture Acute Obstipation Acute Right fibular fracture Acute
[2016-11-14] MEDS ORDERED: METHOCARBAMOL 750 MG TAB PO PRN (13:56)
[2016-11-15] MEDS: ACETAMINOPHEN 325 MG TAB PO PRN (03:34)
[2016-11-15] MEDS: SENNOSIDES/DOCUSATE SODIUM TAB PO SCH ×2 (07:57→20:28)
--- NOTE | 2016-11-15 14:10 | SOAPPROG ---
SOAP Progress Note Assessment/Plan: Assessment: * Multitrauma, status post rock climbing injury. L5 burst fracture. Initial FIM 90. Independent in room starting0 11/14/16. Has walked 60' FWW, did 6 steps B rails CGA/SBA. Accomplished bathing, dressing and toileting with set-up, mod I. Continue PT, OT to optimize mobility and functional status. Continue LSO when head of bed greater than 30 degrees and while out of bed. She is nonweightbearing, right lower extremity, due to ORIF, right talus fracture. Weightbearing as tolerated, left lower extremity, with a walking cast. * Pain management: Oxycodone IR 5-10 p.o. q.4 hours. She's unclear on muscle spasm and need for robaxin ; will change to PRN.. Has not used diazepam; will d /c 11/14/16. Continue acetaminophen 325-650 mg p.o. q.4 hours. * Bowel/bladder care: She is continent of both bowel and bladder. * Skin: No evidence of skin ulceration, breakdown or rash. * DVT Prophylaxis- foot fractures do not present high enough risk to merit prolonged DVT prophylaxis. D/C'd enoxaparin starting 11/15/16. Plan discharge 11/17/16. Lives with boyfriend; he and and other friends/family are available to help. 11/15/16 14:08 Subjective: No complaints. Pain well controlled. R ankle bothers her at night, otherwise comfortable. Objective: Vital Signs Temp Pulse Resp BP Pulse Ox 37.3 C 73 16 100/77 100 11/15/16 08:00 11/15/16 08:00 11/15/16 08:00 11/15/16 08:00 11/15/16 08:00 11/14/16 11/15/16 11/16/16 05:59 05:59 05:59 Intake Total 1546 1530 540 Balance 1546 1530 540 Physical Exam - Physical Exam General Appearance: WD/WN, alert, no apparent distress Respiratory: No respiratory distress, No accessory muscle use Skin: normal color, warm/dry Neuro/Psych: no motor/sensory deficits, alert, normal mood/affect, oriented x 3 ICD10 Worksheet Patient Problems: Problems Problem Status Onset Activity involving mountain climbing, rock climbing, or wall climbing Acute Ankle fracture Acute Fall Acute Fracture, talus closed Acute Lumbar burst fracture Acute Lumbar transverse process fracture Acute Obstipation Acute Right fibular fracture Acute
[2016-11-15] MEDS: oxyCODONE IR 5 MG TAB PO PRN (18:30)
[2016-11-15 19:12] VITALS: O2SAT 98
[2016-11-16] MEDS: oxyCODONE IR 5 MG TAB PO PRN (00:23)
[2016-11-16 07:13] VITALS: BP 107/65; PULSE 68; RESP 16; TEMP 98.3
[2016-11-16] MEDS: SENNOSIDES/DOCUSATE SODIUM TAB PO SCH (08:29)
--- NOTE | 2016-11-16 10:13 | SOAPPROG ---
SOAP Progress Note Assessment/Plan: Assessment: * Multitrauma, status post rock climbing injury. L5 burst fracture. Initial FIM 90. Independent in room starting 11/14/16. Has walked 60' FWW, did 6 steps B rails CGA/SBA. Accomplished bathing, dressing and toileting with set-up, mod I. Continue PT, OT to optimize mobility and functional status. Continue LSO when head of bed greater than 30 degrees and while out of bed. She is nonweightbearing, right lower extremity, due to ORIF, right talus fracture. Weightbearing as tolerated, left lower extremity, with a walking cast. * Pain management: Oxycodone IR 5-10 p.o. q.4 hours. She's unclear on muscle spasm and need for robaxin ; will change to PRN.. Has not used diazepam; will d /c 11/14/16. Continue acetaminophen 325-650 mg p.o. q.4 hours. * Bowel/bladder care: She is continent of both bowel and bladder. * Skin: No evidence of skin ulceration, breakdown or rash. * DVT Prophylaxis- foot fractures do not present high enough risk to merit prolonged DVT prophylaxis. D/C'd enoxaparin starting 11/15/16. Plan discharge 11/16/16. Lives with boyfriend; he and and other friends/family are available to help. Outpatient PT & OT. PCP is Dr. Morrison. 11/16/16 10:11 Subjective: Going home today. No complaints; pain controlled. Uses oxycodone 5 mg about once a day. No constipation. Objective: Vital Signs Temp Pulse Resp BP Pulse Ox 36.8 C 68 16 107/65 98 11/16/16 07:12 11/16/16 07:12 11/16/16 07:12 11/16/16 07:12 11/16/16 07:12 11/15/16 11/16/16 11/17/16 05:59 05:59 05:59 Intake Total 1530 1176 Balance 1530 1176 Physical Exam - Physical Exam General Appearance: WD/WN, alert, no apparent distress Respiratory: No respiratory distress, No accessory muscle use Skin: normal color, warm/dry Neuro/Psych: no motor/sensory deficits, alert, normal mood/affect, oriented x 3 ICD10 Worksheet Patient Problems: Problems Problem Status Onset Activity involving mountain climbing, rock climbing, or wall climbing Acute Ankle fracture Acute Fall Acute Fracture, talus closed Acute Lumbar burst fracture Acute Lumbar transverse process fracture Acute Obstipation Acute Right fibular fracture Acute
--- NOTE | 2016-11-16 10:15 | PDOREHIP ---
Admission [facility] - Admission - 3 Day Assessment Period Admission Date/Day 1: 11/12/16 Day 2: 11/13/16 Day 3: 11/14/16 Discharge [id number] - Discharge - 3 Day Assessment Period 2 Days Prior to Anticipated Discharge Date: 11/15/16 1 Day Prior to Anticipated Discharge Date: 11/16/16 Anticipated Discharge Date: 11/17/16 - Discharge Skin Conditions Unhealed Pressure Ulcer (1 or more/Stage 1 or >)-Discharge: 0. No
--- NOTE | 2016-11-17 03:27 | GDS ---
[f rep st] DISCHARGE SUMMARY ADMITTING DIAGNOSIS: Multiple orthopedic trauma from a rock climbing accident. DISCHARGE DIAGNOSIS: Multiple orthopedic trauma from a rock climbing accident. CONSULTATIONS: There were none. PROCEDURES: There were none. COMPLICATIONS: There were none. HISTORY AND HOSPITAL COURSE: This patient came to [facility] inpatient rehabilitation from [facility]. She had been admitted there on 11/02/2016 having suffered a fall while rock climbing. She sustained a right talus fracture, a left cuboid fracture, an L5 burst fracture, and a right fibular fracture. In the hospital, she had ORIF of the right talus fracture. She was nonweightbearing on the right lower extremity and had a walking boot for the left lower extremity, and she was prescribed an LSO brace for the L5 burst fracture. She did well in rehabilitation and rapidly improved in her function. Her functional independence measure as of 11/14/2016 was 90, which is consistent with assisted living level of function. She was made independent in her room on 11/14/2016. She had walked 60 feet with a front-wheeled walker and was able to climb and descend 6 steps using bilateral rails with contact guard to standby assistance. She was otherwise independent with ADLs. She came with a somewhat complex pain regimen including oxycodone, methocarbamol , and diazepam, as well as acetaminophen. The methocarbamol and diazepam were discontinued with no adverse effects, and she was using oxycodone immediate release approximately 5 mg once or twice a day. With her rapid improvement, she was ready for discharge on 11/16/2016. PHYSICAL EXAMINATION: GENERAL: On the day of discharge, this is a well- nourished, well-developed woman, who appears her chronologic age, cooperative, and in no acute distress. RESPIRATORY: She was in no respiratory distress. There was no tachypnea and no accessory muscle use. SKIN: Normal color and warm and dry. NEUROLOGIC: There are no motor or sensory deficits. She was alert and oriented x3. VITAL SIGNS: Blood pressure was 107/65, heart rate was 68, respiratory rate was 16, oxygen saturation was 98% on room air. DISCHARGE PLAN: CONDITION UPON DISCHARGE: Good. ACTIVITY: Ad meka but to continue nonweightbearing on the right lower extremity and to continue to wear the LSO brace at anytime she is greater than 30-degree angle at the head of the bed or any time she is out of bed. DIET: Regular. FOLLOWUP: Date of next appointment: She will follow up with orthopedic surgeon , Dr. El Duarte, on 11/18/2016, with neurosurgeon, Dr. Rajan Roper, on 07/2016, and with her new primary care provider, Dr. Morrison, on 11/23/2016. MEDICATIONS AT DISCHARGE: 1. Acetaminophen 325-650 mg p.o. q.4 hours p.r.n. 2. Polyethylene glycol 17 g p.o. q. day p.r.n. 3. Senna/docusate 1-2 tabs p.o. b.i.d. p.r.n. 4. Oxycodone 5-10 mg p.o. q.4 hours p.r.n. ISSUES TO BE ADDRESSED AT FOLLOWUP: 1. Mobility and activities of daily living. She will have outpatient occupational and physical therapy. 2. Weightbearing status to be addressed on followup with Dr. Duarte. 3. L5 burst fracture and need for LSO brace. She will follow up with neurosurgeon, Dr. Roper. Greater than 30 minutes were spent on this discharge, including medication reconciliation and coordination of care. /[id number]/MODL MTDD
== END 2016-11-16 11:33 | disposition home or self-care (01) | DRG 561 ==
LOC: BREH 11-12 16:30
PROVIDERS: ADMIT Internal Medicine; ATTEND Physical Medicine & Rehabilitation
PROC: F0636ZZ Communicative/Cognitive Integration Skills Treatment of Neurological System - Whole Body (ICD-10-PCS; principal; 2016-11-12)
PROC: F07M3ZZ Motor Function Treatment of Musculoskeletal System - Whole Body (ICD-10-PCS; principal; 2016-11-12)
DX: S32.051D Stable burst fracture of fifth lumbar vertebra, subsequent encounter for fracture with routine healing (principal); S92.101D Unspecified fracture of right talus, subsequent encounter for fracture with routine healing; S92.212D Displaced fracture of cuboid bone of left foot, subsequent encounter for fracture with routine healing; S82.401D Unspecified fracture of shaft of right fibula, subsequent encounter for closed fracture with routine healing; W17.89XD Other fall from one level to another, subsequent encounter; Y93.31 Activity, mountain climbing, rock climbing and wall climbing
CPT/HCPCS: 97110-GO; 97110-GP; 97116-GP; 97161-GP; 97166-GO; 97530-GO; 97530-GP; 97535-GO; J1650

== ENCOUNTER → 2016-12-08 | Outpatient (CLI) | payer BC, MEDICAID | LOC: FIMAGING 15:09 | PROVIDERS: ATTEND Physician Assistant Surgical | DX: M48.56XD Collapsed vertebra, not elsewhere classified, lumbar region, subsequent encounter for fracture with routine healing (principal) ==

== ENCOUNTER → 2017-01-12 | Outpatient (CLI) | payer BC, MEDICAID | LOC: FLAB 09:06 | PROVIDERS: ATTEND Physician Assistant Surgical | DX: S32.051D Stable burst fracture of fifth lumbar vertebra, subsequent encounter for fracture with routine healing (principal) ==

== ENCOUNTER → 2017-02-09 | Outpatient (CLI) | payer BC, MEDICAID | LOC: FIMAGING 10:31 | PROVIDERS: ATTEND Physician Assistant | DX: S32.051D Stable burst fracture of fifth lumbar vertebra, subsequent encounter for fracture with routine healing (principal) ==

== ENCOUNTER → 2017-03-24 | Outpatient (CLI) | payer BC, MEDICAID | LOC: FLAB 10:01 | PROVIDERS: ATTEND Physician Assistant | DX: S32.051D Stable burst fracture of fifth lumbar vertebra, subsequent encounter for fracture with routine healing (principal) ==